=== PATIENT | female | born 1945 | race Caucasian/White ===

== ENCOUNTER → 2018-07-23 19:46 | Outpatient (CLI) | payer MEDICARE, SELFPAY ==
[2018-07-23 19:49] LABS: Mucous, Urine 0 SEEN /hpf (<or=2+)
[2018-07-23 20:16] LABS: Color, Urine Yellow (Yellow); Glucose, Dipstick Normal (Normal); Ketone-Dipstick Negative (Negative); Leukocyte Esterase-Dipstick 500 /ul (Negative); Nitrite-Dipstick Positive (Negative); Occult Blood-Urine 250 /ul (Negative); Protein-Dipstick 100 mg/dl (Negative); Specific Gravity, Urine 1.015 (1.002-1.030); Urine Bilirubin Dipstick Negative (Negative); Urine Clarity Cloudy (Clear); Urine Urobilinogen Normal (Normal)
[2018-07-23 20:34] LABS: Red Blood Cells-Urine 5-10 SEEN /hpf (0-5); White Blood Cells >100 SEEN /hpf (0-5)
[2018-07-23 20:35] LABS: Bacteria 1+ /hpf (None Seen); Squamous Epithelial Cells - UA 0-5 SEEN /hpf (5-10)
== END ==
PROVIDERS: Family Provider Student in an Organized Health Care Education/Training Program; PCP Student in an Organized Health Care Education/Training Program; Referring Provider Physician Assistant Surgical; Visit Provider Physician Assistant Surgical
DX: N30.01 Acute cystitis with hematuria (principal); R35.0 Frequency of micturition
CPT/HCPCS: 81001; 87077; 87086; 87088; 87186

== ENCOUNTER 2021-01-24 08:08 | Emergency (ER) | payer MEDICARE, SELFPAY ==
[2021-01-24 08:09] VITALS: BP 154/101; PULSE 93; RESP 16; TEMP 36.4; O2SAT 97; BMI 21.4
--- NOTE | 2021-01-24 08:33 | RAD_ITS ---
STUDY: X-RAY - RIGHT HUMERUS REASON FOR EXAM: Female, 75 years old. Pain, decreased range of motion TECHNIQUE: 2 view(s) of the humerus. COMPARISON: None. FINDINGS: Normal visualized humerus. There is no demonstrated fracture or osseous destructive process. There is no demonstrated soft tissue abnormality. RAD/Humerus min 2 Views IMPRESSION: Normal x-ray examination of the humerus. Electronically Signed: Krishna Queen MD at 9:02 EDT , Service support ,
--- NOTE | 2021-01-24 08:33 | RAD_ITS ---
STUDY: X-RAY - RIGHT HAND REASON FOR EXAM: Female, 75 years old. Injury/Pain TECHNIQUE: 3 view(s) of the hand. COMPARISON: None. FINDINGS: The bones are diffusely demineralized. Age consistent degenerative changes at all visualized joint spaces. No demonstrated fracture. There is chondrocalcinosis noted in the TFCC. No foreign body or suspicious soft tissue swelling. RAD/Hand Min 3 Views IMPRESSION: Diffuse osteopenia with polyarticular arthrosis Electronically Signed: Krishna Queen MD at 9:23 EDT , Service support ,
--- NOTE | 2021-01-24 08:33 | RAD_ITS ---
STUDY: X-RAY - RIGHT SHOULDER REASON FOR EXAM: Female, 75 years old. Pain, decreased range of motion TECHNIQUE: 4 view(s) of the shoulder. COMPARISON: None. FINDINGS: Normal glenohumeral articulation. There is degenerative arthrosis of the acromioclavicular joint without inferior osseous spur formation. Normal acromion. Small spurs on the undersurface of the acromion and clavicles could cause impingement in the right clinical setting. Normal humeral head and visualized proximal humerus. The soft tissue structures are unremarkable. Normal visualized pulmonary apex. RAD/Shoulder min 2 Views IMPRESSION: AC joint arthrosis with small inferior spurs which could cause impingement in the right clinical setting Electronically Signed: Krishna Queen MD at 9:03 EDT , Service support ,
--- NOTE | 2021-01-24 08:49 | RAD_ITS ---
STUDY: X-RAY - RIGHT ELBOW REASON FOR EXAM: Female, 75 years old. Injury/Pain TECHNIQUE: 3 view(s) of the elbow. COMPARISON: None. FINDINGS: Normal visualized humerus, radius and ulna. Normal radiocapitellar and ulnotrochlear articulations. The soft tissue structures are unremarkable. RAD/Elbow min 3 Views IMPRESSION: Normal x-ray examination of the elbow. Electronically Signed: Krishna Queen MD at 9:23 EDT , Service support ,
--- NOTE | 2021-01-24 08:50 | ED.VIS.FALL ---
HPI HPI - Fall History of Present Illness Chief Complaint: Fall Narrative Narrative: Patient reports that at noon yesterday she tripped over a curb and fell onto an outstretched right hand. She is right-hand dominant. She denies any blow to the head or loss of consciousness. No neck, back, hip pain. No left shoulder pain. Patient reports that she has right shoulder pain is 3 out of 10 severity and is increased with movement. She has right elbow pain and hand pain that is 7 out of 10 in severity with movement 2 out of 10 at rest. She denies any paresthesias distally. PFSH PFS Medical History Arthritis Back pain History of pneumonia Incontinence Skin cancer Stomach ulcer Thyroid disease Home Medications levothyroxine 13 mcg capsule 13 mcg PO DAILY 07/23/18 [History Last Taken Unknown] pantoprazole 20 mg tablet,delayed release 20 mg PO DAILY 07/23/18 [History Last Taken Unknown] sertraline 25 mg tablet 25 mg PO DAILY 07/23/18 [History Last Taken Unknown] calcium carbonate-vitamin D3 [Jj-600 With Vitamin D] 1 tab PO DAILY 01/24/21 [History Last Taken Unknown] cholecalciferol (vitamin D3) [Vitamin D3] 125 mcg PO DAILY 01/24/21 [History Last Taken Unknown] hydrocodone-acetaminophen 1 tab PO Q6H PRN 3 Days #10 tab 01/24/21 [Rx Last Taken Unknown] magnesium glycinate 100 mg PO DAILY 01/24/21 [History Last Taken Unknown] multivitamin 1 tab PO DAILY 01/24/21 [History Last Taken Unknown] sennosides [senna] 8.6 mg PO DAILY #7 cap 01/24/21 [Rx Last Taken Unknown] vitamin B complex [B Complex] 1 cap PO DAILY 01/24/21 [History Last Taken Unknown] Allergy/AdvReac Type Severity Reaction Status Date / Time Penicillins Allergy Swelling Verified 01/24/21 08:08 Surgical History History of colectomy Perforated ulcer Social History Smoking Status: Never smoker ROS ROS ED Constitutional Constitutional ED: Denies chills, fever(s) or sweats Eyes Eyes: Denies change in vision ENT ENT ED: Denies sore throat Cardiovascular Cardiovascular: Denies chest pain Respiratory/Chest Respiratory/Chest: Denies cough, dyspnea or dyspnea on exertion Gastrointestinal Gastrointestinal: Denies abdominal pain, diarrhea, melena, nausea or vomiting Genitourinary Genitourinary ED: Denies dysuria or urinary frequency Musculoskeletal Musculoskeletal: Denies myalgias Integumentary Denies rash Neurologic Neurologic: Denies headache(s), paresthesias or weakness EXAM Physical Exam Const Vital Signs: 01/24/21 08:09 Temperature 97.5 F L Temperature Source Temporal Pulse Rate 93 Respiratory Rate 16 Blood Pressure 154/101 H Blood Pressure Mean 118 Pulse Ox 97 Oxygen Delivery Method Room Air Positive well nourished and well developed General Appearance ED: well developed HEENT normocephalic and atraumatic Eyes PERRL Neck full ROM, no lymphadenopathy, supple and no JVD Neck Narrative: No vertebral tenderness. Full ROM without difficulty. Cleared by NEXUS criteria. General: Negative for tenderness Chest Wall Chest: Negative for tenderness Resp normal respiratory effort and clear to auscultation bilaterally Effort and Inspection: Negative for respiratory distress Cardio regular rate, regular rhythm and no murmurs Rate: regular rate Rhythm: regular rhythm GI normal to inspection, nondistended, normoactive bowel sounds, soft to palpation and non-tender GI Narrative: No pain in RUQ or LUQ specifically. No peritoneal signs. Back/Spine Back/Spine Narrative: No vertebral tenderness. Full ROM without difficulty. Extremity Extremity Narrative: Mild tenderness palpation over the right shoulder. Good range of motion with minimal difficulty. Moderate tenderness palpation over the right radial head. She does have pain with supination. Minimal pain with flexion extension of her elbow. No tenderness palpation over the distal radius. She has severe tenderness to palpation over the dorsum of her hand medially and there is soft tissue swelling and contusion present. She is neurovascular intact distal to this. 2+ radial pulse. General Extremety ED: Negative for edema or tenderness General Extremity: Negative for edema Neuro oriented x3, CN's II-XII intact bilaterally and no sensory deficits noted Sensorium / Orientation: awake and alert Motor Exam: strength 5/5 throughout Psych mental status grossly normal Skin no rashes or lesions noted MDM MDM Radiography Diagnostic Testing: Radiology Impression Hand X-Ray 01/24/21 08:33 IMPRESSION: Diffuse osteopenia with polyarticular arthrosis Electronically Signed: Krishna Queen MD at 9:23 EDT , Service support , Humerus X-Ray 01/24/21 08:33 IMPRESSION: Normal x-ray examination of the humerus. Electronically Signed: Krishna Queen MD at 9:02 EDT , Service support , Shoulder X-Ray 01/24/21 08:33 IMPRESSION: AC joint arthrosis with small inferior spurs which could cause impingement in the right clinical setting Electronically Signed: Krishna Queen MD at 9:03 EDT , Service support , Elbow X-Ray 01/24/21 08:49 IMPRESSION: Normal x-ray examination of the elbow. Electronically Signed: Krishna Queen MD at 9:23 EDT , Service support , X-rays were reviewed by me. Clinically the patient has a fracture at the base of her fifth metacarpal and I feel that this is present on the x-ray. I did call and discussed with this with the radiologist and he agrees. Treatment and Re-Evaluation Comments:: Patient refused pain medications. She was placed in an orthoglass ulnar gutter splint. Treatment plan: Patient will be discharged with Scott and wendy. Instructed follow-up Dr. Kvng Barber in 1 week for another exam. Return to the emergency department for any worsening symptoms. Disposition: To home in improved and stable condition. Procedures Upper Extremity Splints Upper Extremity Splint: Orthoglass and Ulnar gutter Splint Fabrication: Fabricated Location: Right Discharge Plan Triage Chief Complaint: Fall ED Provider: Laci Ferguson Dx/Rx/DC Orders Clinical Impression: Fracture of fifth metacarpal bone of right hand Instructions: ED Closed Hand Fracture (Adult) Prescriptions: New hydrocodone-acetaminophen 5-325 mg tablet 1 tab PO Q6H PRN (Reason: pain) 3 Days Qty: 10 RF: 0 senna 8.6 mg capsule 8.6 mg PO DAILY Qty: 7 RF: 0 No Action levothyroxine 13 mcg capsule 13 mcg capsule 13 mcg PO DAILY RF: 0 pantoprazole [Protonix] 20 mg tablet,delayed release (DR/EC) 20 mg PO DAILY RF: 0 sertraline [Zoloft] 25 mg tablet 25 mg PO DAILY RF: 0 multivitamin Tablet 1 tab PO DAILY RF: 0 calcium carbonate-vitamin D3 [Jj-600 With Vitamin D] 600 mg(1,500mg) -200 unit Tablet 1 tab PO DAILY RF: 0 vitamin B complex [B Complex] Capsule 1 cap PO DAILY RF: 0 magnesium glycinate 100 mg Tablet 100 mg PO DAILY RF: 0 cholecalciferol (vitamin D3) [Vitamin D3] 125 mcg (5,000 unit) Tablet 125 mcg PO DAILY RF: 0 Primary Care Provider: Rafita Reeves Referrals: Rafita Reeves DO [Primary Care Provider] - Knvg Barber MD [STAFF PHYSICIAN] - 1 Week
== END 2021-01-24 09:54 | disposition home or self-care (01) ==
PROVIDERS: Emergency Provider Emergency Medicine; PCP Student in an Organized Health Care Education/Training Program
DX: S62.316A Displaced fracture of base of fifth metacarpal bone, right hand, initial encounter for closed fracture (principal); M25.511 Pain in right shoulder; M25.521 Pain in right elbow; W10.1XXA Fall (on)(from) sidewalk curb, initial encounter; Y93.9 Activity, unspecified; Y92.9 Unspecified place or not applicable; E07.9 Disorder of thyroid, unspecified; M19.90 Unspecified osteoarthritis, unspecified site; Z87.01 Personal history of pneumonia (recurrent); Z85.828 Personal history of other malignant neoplasm of skin; Z87.19 Personal history of other diseases of the digestive system; Z79.899 Other long term (current) drug therapy
CPT/HCPCS: 29125; 73030; 73060; 73080; 73130; 99282

== ENCOUNTER 2021-03-11 15:00 | Outpatient (RCR) | payer MEDICARE, SELFPAY ==
[2021-02-04 08:27] VITALS: BMI 21.4
[2021-02-11 14:18] VITALS: BMI 21.4
--- NOTE | 2021-02-12 07:37 | HP.OTEVAL ---
Patient's Visit Information DADA ROMAN is a 75 year old F, referred to Occupational Therapy by Dr. Leonora Farley DO, with a diagnosis of right hand 5th Metacarpal fx. Date of Evaluation: 02/11/21 Occupational Therapist: Keyla Ureña, JAYNA/Amandeep, CHT - Subjective This 75 year old female was seen for OT eval with dx of right hand 5th Metacarpal fx. pt states date of injury was January 23, 2021. pt was placed in a cast until today. pt is in need of custom orthosis to allow for fx to continue to healing. - Pain right hand 3 Pain Intensity Range: 0, 3 - ROM ROM Comments: pt demo full ROM of right hand. nodule at base of right 5th - Strength Strength Comments: not tested - Sensation Sensation Comments: denies - Quick DASH-Disab of Arm,Shoulder& Hand Quick DASH Score: 43.1800 - Goals Goal:: pt will demo ind. doffing/donning custom orthosis by end of 1st session. Pt will demonstrate understanding of orthosis use and precautions by end of 1st session and demonstrate knowledge of returning to clinic if orthosis needs adj. to increase comfort by end of 1st session - Rehabilitation General Assessment: Pt is 20 days from DOI and with cast removed in need of custom orthosis for protection and support while fx is healing. Today therapist andrea. custom ulnar gutter orthosis with wrist included, ed. in use and skin care precautions. pt to return to clinic as needed for othosis adj. Rehabilitation Potential: Excellent - Anticipated Interventions Orthoses, Home Program - Visit Plan TEXT: Thank you for the opportunity to evaluate your patient. For Medicare and Medicare HMO plans, please review the plan of care and approve it. It will need to be FAXED BACK to us at [phone] for Medicare purposes. Please let me know if there are questions or concerns regarding this plan of care. Physician Signature: Date:
--- NOTE | 2021-05-17 12:37 | HP.OT.NRP ---
DADA ROMAN was seen in my office for initial evaluation on 02/11/21. The following Plan of Care was established for this patient: Anticipated Interventions: Orthoses, Home Program This patient was last seen in our office 03/11/21. Pertinent comments regarding their Occupational therapy will appear below: Pt was seen for 2 OT visit- pt has not scheduled further apt and due to time lapse in services pt d/c. At this point I will be discontinuing this patient from occupational therapy. I would be happy to see this patient again in the future if found appropriate by the physician. Thank you! Keyla Ureña, OTR/L, CHT
== END 2021-03-11 19:00 | disposition home or self-care (01) ==
LOC: OT 15:00
PROVIDERS: PCP Student in an Organized Health Care Education/Training Program; Referring Provider Orthopaedic Surgery; Visit Provider Orthopaedic Surgery
DX: S62.316D Displaced fracture of base of fifth metacarpal bone, right hand, subsequent encounter for fracture with routine healing (principal); X58.XXXD Exposure to other specified factors, subsequent encounter
CPT/HCPCS: 97110; 97166

== ENCOUNTER 2021-04-08 16:30 | Observation (INO) | payer MEDICARE, SELFPAY ==
[2021-03-05 12:07] VITALS: BMI 21.4
[2021-04-08 16:32] VITALS: BP 107/60; PULSE 110; RESP 16; TEMP 37; O2SAT 96; BMI 20.5
[2021-04-08 16:51] LABS: Absolute Lymphocyte Count 1.27 X10^3/uL (0.83-4.51); Absolute Neutrophil Count 5.5 X10^3/uL (2.0-7.7); Basophil# 0.07 X10^3/uL; Basophil% 0.9 % (0-1); Eosinophil# 0.01 X10^3/uL; Eosinophils% 0.1 % (0-5); Hematocrit 47.4 % (37-47); Hemoglobin 16.1 g/dL (12.0-15.0); Lymphocyte # 1.27 X10^3/ul (0.83-4.51); Lymphocyte % 15.9 % (19-41); Mean Corpuscular Volume 88.3 fL (81-99); Mean Platelet Vol. 9.8 fl (6.2-12.0); Monocyte# 1.09 X10^3/uL; Monocyte% 13.6 % (0-10); NRBC Flagged by Analyzer 0 % (0-5); Neutrophil # 5.52 X10^3/uL (2.7-7.7); Neutrophil % 69.1 % (47-70); Platelet Count 459 K/mm3 (150-450); RBC Distribution Width CV 12.8 % (11.6-14.6); RBC Distribution Width SD 41.3 fl (35.1-43.9); Red Blood Count 5.37 M/mm3 (4.2-5.4)
[2021-04-08 17:03] LABS: Anion Gap 14 (5-15); BUN 27 mg/dL (7-18); BUN/Creat Ratio 11.2 RATIO (10-20); Calcium,Total 9.5 mg/dL (8.5-10.1); Chloride 91 mmol/L (98-107); Creatinine, Serum 2.42 mg/dL (0.55-1.02); EST Glomerular Filtration Rate 21 mL/min (>60); Est Glom Filt Rate - Afr Amer 25 mL/min (>60); Estimated Creatinine Clearance 16.87 ml/min; Glucose 136 mg/dL (74-106); Potassium 3.9 mmol/L (3.5-5.1); Sodium Level 126 mmol/L (136-145)
[2021-04-08 17:57] VITALS: BP 129/69; PULSE 76; RESP 16; TEMP 36.7; O2SAT 96
--- NOTE | 2021-04-08 18:44 | ED.VIS.GI ---
HPI HPI - GI History of Present Illness Chief Complaint: Nausea/Vomiting/Diarrhea Informant: patient and family Abdominal Pain/Flank Pain Onset: Days Timing: Continuous Quality: Cramping Location: Diffuse Current Severity: Mild Maximum Severity: Moderate Nausea/Vomiting/Emesis GI Symptom: Positive for Nausea and Vomiting Onset: Days Severity: Moderate Diarrhea/Melena/Hematochezia GI Symptom: Positive for Diarrhea; Negative for Melena and Hematochezia Onset: Days Stool Quality: Positive for Loose Severity: Mild Associated Symptoms Associated Symptoms: Negative for Dysuria, Frequency, Hematuria and Urgency Narrative Narrative: 75-year-old female states she has had nausea, vomiting diarrhea since Monday. Abdominal cramping. Says she was admitted to [facility] on Monday and discharged yesterday evening. She states her symptoms continue. She has had a prior colectomy for ulcerative colitis. Also appendectomy, cholecystectomy and hysterectomy. She denies any dysuria. She denies any fever. Prior similar symptoms: No Recent Illness/Hospitalization: Yes [facility] [place] Medical History Arthritis Back pain History of pneumonia Incontinence Skin cancer Stomach ulcer Thyroid disease Home Medications levothyroxine 13 mcg capsule 13 mcg PO DAILY 07/23/18 [History Last Taken Unknown] pantoprazole 20 mg tablet,delayed release 20 mg PO DAILY 07/23/18 [History Last Taken Unknown] sertraline 25 mg tablet 25 mg PO DAILY 07/23/18 [History Last Taken Unknown] calcium carbonate-vitamin D3 [Jj-600 With Vitamin D] 2 tab PO DAILY 01/24/21 [History Last Taken Unknown] cholecalciferol (vitamin D3) [Vitamin D3] 125 mcg PO DAILY 01/24/21 [History Last Taken Unknown] magnesium glycinate 100 mg PO DAILY 01/24/21 [History Last Taken Unknown] multivitamin 1 tab PO DAILY 01/24/21 [History Last Taken Unknown] sennosides [senna] 8.6 mg PO DAILY #7 cap 01/24/21 [Rx Last Taken Unknown] vitamin B complex [B Complex] 1 cap PO DAILY 01/24/21 [History Last Taken Unknown] Allergy/AdvReac Type Severity Reaction Status Date / Time Penicillins Allergy Swelling Verified 04/08/21 16:31 Surgical History History of colectomy Perforated ulcer Social History Smoking Status: Never smoker ROS ROS ED ROS Narrative Recent nausea, vomiting, diarrhea and abdominal pain. Review of Systems ROS Unobtainable: Denies due to encephalopathy Constitutional Constitutional ED: Denies chills or fever(s) ENT ENT ED: Denies ear pain or sore throat Cardiovascular Cardiovascular: Denies chest pain Respiratory/Chest Respiratory/Chest: Denies cough or dyspnea Gastrointestinal Gastrointestinal: Reports abdominal pain, diarrhea, nausea and vomiting; Denies constipation or melena Genitourinary Genitourinary ED: Denies dysuria or hematuria Musculoskeletal Musculoskeletal: Denies arthralgias or myalgias Integumentary Denies rash Neurologic Neurologic: Denies headache(s) Psychiatric Psychiatric: Denies depression Endocrine Endocrinology: Denies polyuria Hematologic/Lymphatic Hematologic/Lymphatic: Denies easy bruising Allergic/Immunologic Allergic/Immunologic ED: Denies urticaria EXAM Physical Exam Narrative Exam Narrative: 75-year-old female bent over sitting on the end of the bed. Retching. Vital signs are stable. She is afebrile. She does not look septic or toxic. She does have dry mucous membranes. HEENT exam dry mouth. Otherwise unremarkable. Neck nontender no lymphadenopathy. Lungs clear to auscultation bilaterally. Heart regular rhythm no murmur. Abdomen is soft nondistended normal bowel sounds no peritoneal signs. Minimally tender. No signs of obstruction. No hernia or mass. Patient moving all 4 extremities. Nontender no edema. Skin unremarkable. Neurologically she is awake alert with no focal motor deficits. Const Vital Signs: 04/08/21 16:32 04/08/21 17:57 04/08/21 19:00 Temperature 98.6 F 98.1 F 98.5 F Temperature Source Temporal Oral Oral Pulse Rate 110 H 76 76 Respiratory Rate 16 16 16 Blood Pressure 107/60 129/69 H 122/66 H Blood Pressure Mean 75 89 84 Pulse Ox 96 96 96 Oxygen Delivery Method Room Air Room Air Room Air Positive well nourished and well developed; Negative for unkempt General Appearance ED: well developed; Negative for unkempt HEENT Reports dry mucous membranes normocephalic and atraumatic; Negative for trauma or tenderness Mouth ED: Yes dry mucous membranes Mouth: dry mucous membranes Eyes PERRL and EOMs intact bilaterally Neck no lymphadenopathy, supple and no JVD General: Negative for tenderness Resp normal respiratory effort and clear to auscultation bilaterally Cardio regular rate, regular rhythm, S1 normal heart sound, S2 normal heart sound and no murmurs Rate: tachycardic GI non-distended and no masses Auscultation: normoactive bowel sounds Palpation: soft and tender Back/Spine no CVA tenderness Extremity full ROM General Extremety ED: Negative for edema or tenderness General Extremity: Negative for edema Neuro CN's II-XII intact bilaterally and moves all extremities Sensorium / Orientation: alert, oriented to person, oriented to place and oriented to time Motor Exam: strength 5/5 throughout Psych mental status grossly normal Appearance: Negative for unkempt Skin Lesions: no lesions Rashes: no rashes MDM MDM MDM Narrative Medical decision making narrative: 75-year-old female with nausea vomiting diarrhea now for 6 days. She was recently hospitalized at [facility]. Discharged yesterday. She is having similar symptoms. Clinically she looks dehydrated. She be treated with IV fluids nausea medication pain medication and labs to be obtained. Repeat exam at 845 patient looks a lot better. Pain is currently much improved. She feels much better after the IV fluids. And the IV Zofran. She denies and female friend at the bedside all discussed her tests and she will be admitted have already spoken to the hospitalist. I am not doing imaging at this time because she looks so much better her abdomen is benign and her current kidney function. Lab Data Attestation: I reviewed the patient's lab results. Lab results narrative: CBC White count 8. Hemoglobin 16 most likely elevated due to dehydration. Sodium is low at 126. Chloride 91. Gap 14. She had acute kidney injury with a creatinine of 2.42 I will look back to see if we have any old ones to compare that to. Liver enzymes and lipase are normal as is the UA. Labs: Laboratory Results - last 24 hr 04/08/21 04/08/21 04/08/21 16:40 16:40 18:50 WBC 8.0 RBC 5.37 Hgb 16.1 H Hct 47.4 H MCV 88.3 MCH 30.0 MCHC 34.0 RDW Std Deviation 41.3 RDW Coeff of Humphrey 12.8 Plt Count 459 H MPV 9.8 Immature Gran % (Auto) 0.400 Neut % (Auto) 69.1 Lymph % (Auto) 15.9 L Luna % (Auto) 13.6 H Eos % (Auto) 0.1 Baso % (Auto) 0.9 Absolute Neuts (auto) 5.5 Absolute Lymphs (auto) 1.27 Nucleated RBC % 0 Sodium 126 L Potassium 3.9 Chloride 91 L Carbon Dioxide 21.0 Anion Gap 14 BUN 27 H Creatinine 2.42 H Estim Creat Clear Calc 16.87 Est GFR (MDRD) Af Amer 25 L Est GFR (MDRD) Non-Af 21 L BUN/Creatinine Ratio 11.2 Glucose 136 H Calcium 9.5 Total Bilirubin 0.80 Direct Bilirubin 0.20 AST 19 ALT 23 Alkaline Phosphatase 112 Total Protein 8.9 H Albumin 4.1 Globulin 4.8 H Lipase 230 Urine Color Urine Clarity Urine pH Ur Specific Apex Urine Protein Urine Glucose (UA) Urine Ketones Urine Occult Blood Urine Nitrite Urine Bilirubin Urine Urobilinogen Ur Leukocyte Esterase Urine RBC Urine WBC Ur Squamous Epith Cells Amorphous Sediment Urine Bacteria Hyaline Casts Urine Mucus 04/08/21 19:40 WBC RBC Hgb Hct MCV MCH MCHC RDW Std Deviation RDW Coeff of Humphrey Plt Count MPV Immature Gran % (Auto) Neut % (Auto) Lymph % (Auto) Luna % (Auto) Eos % (Auto) Baso % (Auto) Absolute Neuts (auto) Absolute Lymphs (auto) Nucleated RBC % Sodium Potassium Chloride Carbon Dioxide Anion Gap BUN Creatinine Estim Creat Clear Calc Est GFR (MDRD) Af Amer Est GFR (MDRD) Non-Af BUN/Creatinine Ratio Glucose Calcium Total Bilirubin Direct Bilirubin AST ALT Alkaline Phosphatase Total Protein Albumin Globulin Lipase Urine Color Yellow Urine Clarity Sl. Cloudy Urine pH 5.0 Ur Specific Apex 1.025 Urine Protein 30 H Urine Glucose (UA) Normal Urine Ketones 5 H Urine Occult Blood 10 H Urine Nitrite Negative Urine Bilirubin 3 H Urine Urobilinogen 1 H Ur Leukocyte Esterase 25 H Urine RBC 0-5 SEEN Urine WBC 0-5 SEEN Ur Squamous Epith Cells 0-5 SEEN Amorphous Sediment 1+ URATE Urine Bacteria 0 SEEN Hyaline Casts 5-10 SEEN Urine Mucus 0 SEEN Discharge Plan Triage Chief Complaint: Nausea/Vomiting/Diarrhea ED Provider: Jono Timmons Dx/Rx/DC Orders Clinical Impression: Gastroenteritis, Acute dehydration, Acute kidney injury, Acute hyponatremia Prescriptions: No Action levothyroxine 13 mcg capsule 13 mcg capsule 13 mcg PO DAILY RF: 0 pantoprazole [Protonix] 20 mg tablet,delayed release (DR/EC) 20 mg PO DAILY RF: 0 sertraline [Zoloft] 25 mg tablet 25 mg PO DAILY RF: 0 multivitamin Tablet 1 tab PO DAILY RF: 0 calcium carbonate-vitamin D3 [Jj-600 With Vitamin D] 600 mg(1,500mg) -200 unit Tablet 2 tab PO DAILY RF: 0 vitamin B complex [B Complex] Capsule 1 cap PO DAILY RF: 0 magnesium glycinate 100 mg Tablet 100 mg PO DAILY RF: 0 cholecalciferol (vitamin D3) [Vitamin D3] 125 mcg (5,000 unit) Tablet 125 mcg PO DAILY RF: 0 senna 8.6 mg capsule 8.6 mg PO DAILY Qty: 7 RF: 0 Primary Care Provider: Rafita Reeves Referrals: Rafita Reeves DO [Primary Care Provider] - Disposition Disposition: Acute Care Hospital [facility]
[2021-04-08 19:00] VITALS: BP 122/66; PULSE 76; RESP 16; TEMP 36.9; O2SAT 96
[2021-04-08] MEDS: 0.9% Normal Saline 1,000 ML 1000 ML IV (19:05)
[2021-04-08] MEDS: Ondansetron 4 MG/2 ML Vial IV (19:05)
[2021-04-08] MEDS: Morphine 4 MG/ML Syringe IV (19:05)
[2021-04-08 19:28] LABS: AST(SGOT) 19 U/L (15-37); Alanine Aminotransfer ALT/SGPT 23 U/L (13-56); Albumin, Serum 4.1 g/dL (3.2-5.0); Alkaline Phosphatase 112 U/L (45-117); Globulin 4.8 g/dL (2.2-4.2); Lipase 230 U/L (73-393); Protein, Total 8.9 g/dL (6.4-8.2)
[2021-04-08 19:44] LABS: Bacteria 0 SEEN /hpf (None Seen); Mucous, Urine 0 SEEN /hpf (<or=2+)
[2021-04-08 19:55] LABS: Color, Urine Yellow (Yellow); Glucose, Dipstick Normal (Normal); Ketone-Dipstick 5 mg/dl (Negative); Leukocyte Esterase-Dipstick 25 /ul (Negative); Nitrite-Dipstick Negative (Negative); Occult Blood-Urine 10 /ul (Negative); Protein-Dipstick 30 mg/dl (Negative); Specific Gravity, Urine 1.025 (1.002-1.030); Urine Clarity Sl. Cloudy (Clear); Urine Urobilinogen 1 mg/dl (Normal)
[2021-04-08 19:58] LABS: Urine Bilirubin Dipstick 3 mg/dL (Negative)
[2021-04-08 20:11] LABS: Amorphous Sediment 1+ URATE; Hyaline Cast 5-10 SEEN /lpf (0-5); Red Blood Cells-Urine 0-5 SEEN /hpf (0-5); Squamous Epithelial Cells - UA 0-5 SEEN /hpf (5-10); White Blood Cells 0-5 SEEN /hpf (0-5)
--- NOTE | 2021-04-08 20:41 | HP.PCM.HOS_ITS ---
HPI - General General Date of Admission: 04/08/21 HPI Narrative DADA ROMAN, is a 75 F with a PMH as outlined who was admitted via the ED on 04/08/2021 with a complaint of nausea, vomiting and diarrhea for 5 days prior to admission. She had associated abdominal cramping and was recenty admitted at an outside hospital-[facility], where she was hydrated with IVF and discharged 2 days prior to presenting at [facility] due to persistence of her symptoms. She denied any fever, chills, chest pain, palpitations, dizziness or shortness of breath. Review of systems is otherwise negative. Diarrhea had resolved at time of review. Vitals showed BP of 122/66, IL of 76 as well as RR of 16; temp was 98.5F. Chemistry showed Hb of 16.1, wbc of 8 and platelets of 459. Chemisty showed sodiu of 126, K of 3.9, Cr of 2.42 and lipase was 230. UA was negative for UTI. She is being admitted to be managed for intractable nausea and vomiting. [facility] Medical History Arthritis Back pain History of pneumonia Incontinence Skin cancer Stomach ulcer Thyroid disease Home Medications pantoprazole 20 mg tablet,delayed release 20 mg PO DAILY 07/23/18 [History Last Taken Unknown] sertraline 25 mg tablet 25 mg PO DAILY 07/23/18 [History Last Taken Unknown] calcium carbonate-vitamin D3 [Jj-600 With Vitamin D] 2 tab PO DAILY 01/24/21 [History Last Taken Unknown] cholecalciferol (vitamin D3) [Vitamin D3] 125 mcg PO DAILY 01/24/21 [History Last Taken Unknown] magnesium glycinate 100 mg PO DAILY 01/24/21 [History Last Taken Unknown] multivitamin 1 tab PO DAILY 01/24/21 [History Last Taken Unknown] sennosides [senna] 8.6 mg PO DAILY #7 cap 01/24/21 [Rx Last Taken Unknown] vitamin B complex [B Complex] 1 cap PO DAILY 01/24/21 [History Last Taken Un known] levothyroxine 100 mcg PO MOTUWETHFR 04/08/21 [History Last Taken Unknown] levothyroxine 200 mcg PO SUSA 04/08/21 [History Last Taken Unknown] Allergy/AdvReac Type Severity Reaction Status Date / Time Penicillins Allergy Swelling Verified 04/08/21 16:31 Surgical History History of colectomy Perforated ulcer Social History Smoking Status: Never smoker ROS Review of Systems ROS Unobtainable: Denies due to encephalopathy Constitutional Constitutional: Reports anorexia, fatigue, malaise and weakness; Denies change in weight, chills or fever(s) Eyes Eyes: Denies double vision ENT HEENT: Denies dysphagia, hearing loss, nasal congestion, nasal discharge or sore throat Cardiovascular Cardiovascular: Denies chest pain, dyspnea on exertion, lightheadedness, orthopnea, palpitations, paroxysmal nocturnal dyspnea or rapid heart rate Respiratory/Chest Respiratory/Chest: Denies cough, dyspnea, productive cough, shortness of breath at rest or shortness of breath with exertion Gastrointestinal Gastrointestinal: Reports abdominal pain, nausea and vomiting; Denies coffee ground emesis, constipation, diarrhea, dyspepsia, hematemesis, hematochezia, loose stools or melena Genitourinary Genitourinary: Denies burning urination, dysuria or urinary frequency Musculoskeletal Musculoskeletal: Denies arthralgias or joint swelling Neurologic Neurologic: Reports abnormal gait; Denies dizziness, focal weakness or headac he(s) Psychiatric Psychiatric: Denies anxiety Hematologic/Lymphatic Hematologic/Lymphatic: Denies anemia Allergic/Immunologic Allergic/Immunologic: Denies asthma Vital Signs Vital Signs Vital Signs: 04/08/21 16:32 04/08/21 17:57 04/08/21 19:00 Temperature 98.6 F 98.1 F 98.5 F Temperature Source Temporal Oral Oral Pulse Rate 110 H 76 76 Respiratory Rate 16 16 16 Blood Pressure 107/60 129/69 H 122/66 H Blood Pressure Mean 75 89 84 Pulse Ox 96 96 96 Oxygen Delivery Method Room Air Room Air Room Air Weight Weight: 115 lb 15.41 oz Body Mass Index (BMI) 20.5 Physical Exam Const alert, oriented x3 and no apparent distress General Appearance: cooperative HEENT normocephalic, head/scalp atraumatic and hearing grossly normal bilaterally HEENT Narrative: dry mucosal membranes Eyes PERRL, EOMs intact bilaterally and conjunctivae normal Neck no lymphadenopathy Resp normal respiratory effort, no retractions, no use of accessory muscles and clear to auscultation bilaterally Cardio regular rate, regular rhythm, S1 normal heart sound, S2 normal heart sound and no murmurs GI normal to inspection, nondistended, normoactive bowel sounds, soft to palpation, non-tender and non-distended Extremity normal to inspection, full ROM and no clubbing, cyanosis or edema Peripheral Pulses: Yes pulses 2+ throughout Skin no rashes or lesions noted Neuro oriented x3 Sensorium / Orientation: awake and alert Psych affect normal Results Lab / Micro Data Result Diagrams: 04/08/21 16:40 04/08/21 16:40 Labs: Laboratory Results - last 24 hr 04/08/21 16:40: WBC 8.0, RBC 5.37, Hgb 16.1 H, Hct 47.4 H, MCV 88.3, MCH 30.0, MCHC 34.0, RDW Std Deviation 41.3, RDW Coeff of Humphrey 12.8, Plt Count 459 H, MPV 9.8, Immature Gran % (Auto) 0.400, Neut % (Auto) 69.1, Lymph % (Auto) 15.9 L, [place] % (Auto) 13.6 H, Eos % (Auto) 0.1, Baso % (Auto) 0.9, Absolute Neuts (auto) 5.5, Absolute Lymphs (auto) 1.27, Nucleated RBC % 0 04/08/21 16:40: Sodium 126 L, Potassium 3.9, Chloride 91 L, Carbon Dioxide 21.0, Anion Gap 14, BUN 27 H, Creatinine 2.42 H, Estim Creat Clear Calc 16.87, Est GFR (MDRD) Af Amer 25 L, Est GFR (MDRD) Non-Af 21 L, BUN/Creatinine Ratio 11.2, Glucose 136 H, Calcium 9.5 04/08/21 18:50: Total Bilirubin 0.80, Direct Bilirubin 0.20, AST 19, ALT 23, Alkaline Phosphatase 112, Total Protein 8.9 H, Albumin 4.1, Globulin 4.8 H, Lipase 230 04/08/21 19:40: Urine Color Yellow, Urine Clarity Sl. Cloudy, Urine pH 5.0, Ur Specific [place] 1.025, Urine Protein 30 H, Urine Glucose (UA) Normal, Urine Ketones 5 H, Urine Occult Blood 10 H, Urine Nitrite Negative, Urine Bilirubin 3 H, Urine Urobilinogen 1 H, Ur Leukocyte Esterase 25 H, Urine RBC 0-5 SEEN, Urine WBC 0-5 SEEN, Ur Squamous Epith Cells 0-5 SEEN, Amorphous Sediment 1+ URATE, Urine Bacteria 0 SEEN, Hyaline Casts 5-10 SEEN, Urine Mucus 0 SEEN Assessment & Plan Assessment/Plan (1) Acute kidney injury: (2) Acute dehydration: (3) Acute hyponatremia: (4) Gastroenteritis: PLAN: #Intractable nausea and vomiting * etiology is unclear, appears to be possibly a viral enteritis * admit to med surg * hydrate gently with iVF * IV zofran prn * #Hyponatremia * likely a hypo osmolar hypotonic hyponatremia due to nausea and vomiting * check serum and urine osmolality * hydrate with IVF and trend sodium * #JANY * CR is 2.42, with a baseline of 0.8 from 2015 * likely due to nausea and vomiting * hydrate with IVF and trend CR. If CR doesnt trend down with hydration, will get renal USG and further urine electrolyte studies * #HYpothyroidism: on synthroid #Depression: on sertraline DVT prophylaxis: lovenox Code status: full code * Patient counselled about differences between full code, DNRCC and DNRCCA. Patient elects to be full code. Total face to face time: 16 mins Charges/Coding Visit Charges OBSV E&M: 72206 Initial observation care L3 Procedures Hospitalists Procedures: 16041 Advncd Care Plan 30 Min
[2021-04-08] MEDS: 0.9% Normal Saline 1,000 ML 999 ML IV (21:01)
[2021-04-08 21:02] VITALS: BP 110/70; PULSE 70; RESP 16; TEMP 526.1; TEMP 979; O2SAT 99
[2021-04-08 22:13] VITALS: BMI 21.2
[2021-04-08 22:31] VITALS: BP 106/57; PULSE 69; RESP 16; TEMP 36.7; O2SAT 97
[2021-04-08] MEDS: 0.9% Normal Saline 1,000 ML 150 ML IV (22:36)
[2021-04-08 23:20] VITALS: PULSE 71
[2021-04-09] VITALS (11 sets, daily range): BP systolic 96–106; BP diastolic 42–61; PULSE 60–70; RESP 16–18; TEMP 36.4–37; O2SAT 95–99
[2021-04-09] MEDS: 0.9% Normal Saline 1,000 ML 150 ML IV (05:00)
[2021-04-09] MEDS: Levothyroxine 100 MCG Tablet PO (05:01)
[2021-04-09 07:13] LABS: Absolute Lymphocyte Count 1.54 X10^3/uL (0.83-4.51); Absolute Neutrophil Count 3.1 X10^3/uL (2.0-7.7); Basophil# 0.06 X10^3/uL; Basophil% 1.1 % (0-1); Eosinophils% 1.8 % (0-5); Hematocrit 36.4 % (37-47); Hemoglobin 12.2 g/dL (12.0-15.0); Lymphocyte # 1.54 X10^3/ul (0.83-4.51); Lymphocyte % 27.2 % (19-41); Mean Corp Hgb Conc 33.5 g/dL (32-36); Mean Corpuscular Hgb 29.9 pg (27.0-32.0); Mean Corpuscular Volume 89.2 fL (81-99); Mean Platelet Vol. 9.6 fl (6.2-12.0); Monocyte# 0.86 X10^3/uL; Monocyte% 15.2 % (0-10); NRBC Flagged by Analyzer 0 % (0-5); Neutrophil # 3.09 X10^3/uL (2.7-7.7); Neutrophil % 54.3 % (47-70); Platelet Count 262 K/mm3 (150-450); RBC Distribution Width CV 12.7 % (11.6-14.6); RBC Distribution Width SD 41.1 fl (35.1-43.9); Red Blood Count 4.08 M/mm3 (4.2-5.4); White Blood Count 5.7 K/mm3 (4.4-11.0)
--- NOTE | 2021-04-09 07:19 | PN.HOSP_ITS ---
Subjective Subjective Patient with improvements initial presentation with lessened nausea and current toleration of clears. She did have diarrhea this morning and discussed with her plan for C. difficile as well as enteric pathogen to be sent. Patient per discussion did not have CT scan of Mel however belly is soft, nontender to pal pation therefore per discussion with patient deferred at this time. Patient does note that [place] town and has city water. Patient denies fevers, chills, emesis, abdominal pain, chest pain or dyspnea. Objective Data Objective Data Vital Signs: Vital Signs Temp Pulse Resp BP Pulse Ox 98.2 F 65 16 97/58 L 98 04/09/21 04:30 04/09/21 05:05 04/09/21 04:30 04/09/21 04:30 04/09/21 04:30 Oxygen Delivery Method Room Air Weight: 120 lb 2.431 oz Body Mass Index (BMI) 21.2 Intake & Output: Intake and Output for Last 24 Hours 04/07/21 04/08/21 04/09/21 23:59 23:59 23:59 Intake Total 1999 / 1999 1160 / 1160 Output Total 600 / 600 600 / 600 Balance 1400 / 1400 560 / 560 Lab / Micro Data Result Diagrams: 04/09/21 06:33 04/09/21 08:27 Labs: Laboratory Results - last 24 hr 04/08/21 16:40: WBC 8.0, RBC 5.37, Hgb 16.1 H, Hct 47.4 H, MCV 88.3, MCH 30.0, MCHC 34.0, RDW Std Deviation 41.3, RDW Coeff of Humphrey 12.8, Plt Count 459 H, MPV 9.8, Immature Gran % (Auto) 0.400, Neut % (Auto) 69.1, Lymph % (Auto) 15.9 L, [place] % (Auto) 13.6 H, Eos % (Auto) 0.1, Baso % (Auto) 0.9, Absolute Neuts (auto) 5.5, Absolute Lymphs (auto) 1.27, Nucleated RBC % 0 04/08/21 16:40: Sodium 126 L, Potassium 3.9, Chloride 91 L, Carbon Dioxide 21.0, Anion Gap 14, BUN 27 H, Creatinine 2.42 H, Estim Creat Clear Calc 16.87, Est GFR (MDRD) Af Amer 25 L, Est GFR (MDRD) Non-Af 21 L, BUN/Creatinine Ratio 11.2, Glucose 136 H, Calcium 9.5 04/08/21 18:50: Total Bilirubin 0.80, Direct Bilirubin 0.20, AST 19, ALT 23, Alkaline Phosphatase 112, Total Protein 8.9 H, Albumin 4.1, Globulin 4.8 H, Lipase 230 04/08/21 19:40: Urine Color Yellow, Urine Clarity Sl. Cloudy, Urine pH 5.0, Ur Specific [place] 1.025, Urine Protein 30 H, Urine Glucose (UA) Normal, Urine Ketones 5 H, Urine Occult Blood 10 H, Urine Nitrite Negative, Urine Bilirubin 3 H, Urine Urobilinogen 1 H, Ur Leukocyte Esterase 25 H, Urine RBC 0-5 SEEN, Urine WBC 0-5 SEEN, Ur Squamous Epith Cells 0-5 SEEN, Amorphous Sediment 1+ URATE, Urine Bacteria 0 SEEN, Hyaline Casts 5-10 SEEN, Urine Mucus 0 SEEN 04/09/21 06:33: WBC 5.7, RBC 4.08 L, Hgb 12.2, Hct 36.4 L, MCV 89.2, MCH 29.9, MCHC 33.5, RDW Std Deviation 41.1, RDW Coeff of Humphrey 12.7, Plt Count 262, MPV 9.6, Immature Gran % (Auto) 0.400, Neut % (Auto) 54.3, Lymph % (Auto) 27.2, [place] % (Auto) 15.2 H, Eos % (Auto) 1.8, Baso % (Auto) 1.1 H, Absolute Neuts (auto) 3.1, Absolute Lymphs (auto) 1.54, Nucleated RBC % 0 Physical Exam Narrative Physical Examination: General: Awake, alert, oriented x 3 and cooperative, seated upright in the medical surgical bed in no apparent distress. Skin: Normal color, normal turgor, no icterus, no cyanosis. HEENT: AT/NC, EOMI, PERRLA, improved mildly dry MM. Lungs: CTA bilaterally, mild decrease BL bases, no rales, ronchi or wheezing. Heart: Regular rate and rhythm; no gallop, rub audible. Abdomen: Soft, NTTP, ND, mildly hyperactive BS. Extremities: No cyanosis, clubbing, or edema. Neurological: Patient awake, alert, oriented as noted, cognitive function in tact; pupils equally reactive to light and accommodation, cranial nerves II-XII grossly normal, moving all 4 extremities, no focal deficits, strength mildly global decreased, improving. Psychiatric: Affect appears fatigued otherwise normal, no acute evidence of depressive or anxiety feelings. Assessment & Plan Assessment/Plan (1) Acute kidney injury: (2) Gastroenteritis: PLAN: The patient is a 75 y/o F w/ PMHx: Anxiety and Depression, Hypothyroidism, GERD w/ Hx Gastric Ulcer w/ perforation, Ulcerative Colitis s/p prior colectomy who presents to the [facility] ED on 04/08/21 with history of abdominal cramping, nausea, emesis and poor oral intake over the last 5 days with recent outside facility [facility] evaluation discharged 2 days prior to current presentation given ongoing persistent symptoms. 1. N/V/D, Suspicious for Acute Gastroenteritis: Admitted to VT, continue aggressive hydration, will obtain c-diff, stool cx, will not start antibiotics at this time given unclear source pending stool studies as may be viral gastroenteritis. CBC with no marked WBC elevation or left shift and afebrile. Anti-emetics, pain regimen PRN. We will continue clear liquids and advance diet as tolerated. If patient continues to clinically improve and transition to regular diet pending stool studies likely will be able to discharge 04/10/21 AM. 2. Acute kidney injury: Secondary to GI losses as noted above. Admission BUN/Cr 27/2.42, prior baseline creatinine noted to be 0.8. 04/09/2021 BUN/creatinine 15/1.15, significantly improved. We will continue hydration and repeat CMP in AM. 3. Acute hyponatremia, hypovolemia associated: Admission sodium 126, likely secondary to GI losses as noted, aggressively hydrated, repeat 04/09/2021 sodium 136, continue judicious hydration with repeat CMP in AM. 4. Hypokalemia: Admission K+ 3.2, magnesium level requested and noted to be 1.7, supplementation given, repeat level in AM. 5. Ulcerative colitis: Patient with history of ulcerative colitis status post colectomy, currently abdomen soft, nontender to palpation, deferring any CT at this point, encourage continued outpatient follow-up with Dr. Herr, gastroenterology. 6. Hypothyroidism: Continue home synthroid regimen. 7. Anxiety and depression: We will continue patient home sertraline regimen. 8. History of GERD with gastric ulcer with history of perforation: We will continue patient on twice daily PPI and add Carafate. 9. DVT prophylaxis: Glenis Gregory. Charges/Coding Visit Charges Inpatient E&M: 88013 Subs Hosp L2
[2021-04-09] MEDS: Sertraline 50 MG Tablet 25 MG PO (07:55)
[2021-04-09] MEDS: Pantoprazole Sodium 20 MG Tablet PO ×2 (07:56→23:05)
[2021-04-09] MEDS: Multivitamins,Therapeutic Tablet 1 TABLET PO (07:56)
[2021-04-09] MEDS: Calcium Carb/Vitamin D 1 TABLET Tablet PO (07:56)
[2021-04-09] MEDS: Enoxaparin 30 MG/0.3 ML Syringe SC (08:00)
[2021-04-09] MEDS: Cholecalciferol (VIT D3) 25 MCG TABLET (1,000 UNITS) 125 MCG PO (08:01)
[2021-04-09 09:08] LABS: Anion Gap 7 (5-15); BUN 15 mg/dL (7-18); Calcium,Total 7.8 mg/dL (8.5-10.1); Chloride 107 mmol/L (98-107); Creatinine, Serum 1.15 mg/dL (0.55-1.02); EST Glomerular Filtration Rate 49 mL/min (>60); Est Glom Filt Rate - Afr Amer 59 mL/min (>60); Glucose 99 mg/dL (74-106); Magnesium 1.7 mg/dL (1.6-2.6); Potassium 3.2 mmol/L (3.5-5.1); Sodium Level 136 mmol/L (136-145)
[2021-04-09] MEDS: Potassium Chloride Oral Tablet 20 MEQ PO (10:33)
[2021-04-09] MEDS: Sucralfate 1 GM Tablet PO ×3 (10:34→23:05)
[2021-04-09] MEDS: Vitamin B Comp W-C Capsule 1 CAP PO (12:32)
--- NOTE | 2021-04-09 13:00 | CASEMGMT ---
RN CM FINAL DRESSING CUTTER CM to room to meet with patient for initial transition planning/care coordination assessment. RN RIN introduced self and role at [facility]. Pt voices understanding and consents to assessment at this time. Pt resting in bed in no distress at this time. Pt is A/O at this time and answers all questions appropriately. Care providers, pharmacy, and demographics verified/updated at this time. PCP: Dr Reeves Specialists:Dr Ramirez Preferred Pharmacy:[facility] Insurance: [employer] [place] Prescription Benefit: Yes Living Will/HPOA: Has both LW and HPOA, who is her niece, Bina LNOK: Niece, Bina. Sis-in-law, Twilla Living Arrangements: Lives alone in one story home/condo. 2 steps to enter thru the garage. Independent. Transportation: Pt states drives self and states no transportation concerns at this time. DME: Ambulates independently w/no DME. Has a BP machine Pt states no need for further DME at this time. HHC/SNF: No history of either. No needs identified. Pt denies need for HHC or OP therapy. Pt wishes to return home and states has no concerns with going home at time of discharge. CM to follow for any discharge planning/needs. Pt voices no concerns/needs at this time. Advised pt to ask for CM if any questions/concerns/needs arise. Voices understanding. PLAN: Home w/discharge plans in place. Sean WEBER RN, CM
--- NOTE | 2021-04-09 14:25 | CASEMGMT ---
RN CM REFRIGERATING TECHNICIAN CM to room to meet with patient for initial transition planning/care coordination assessment. RN RIN introduced self and role at [facility]. Pt voices understanding and consents to assessment at this time. Pt resting in bed in no distress at this time. Pt is A/O at this time and answers all questions appropriately. Care providers, pharmacy, and demographics verified/updated at this time. PCP: Dr Montalvo Specialists: Dr Amos--oncology, Dr Joiner-pulmonology, Dr Sarah-dermatology, Dr Sarah-ophthalmology Preferred Pharmacy: [facility] Insurance:[employer], MMO Prescription Benefit: Yes, [place] Living Will/HPOA: [facility] does not have LW or HCPOA . Interested in more information but states does not want to talk with SW at this time to complete paperwork. Provided information on advanced directives and given Social Service rac card with number to call if chooses in the future to utilize [facility] social work for advanced directive completion. LNOK:, Marcy Living Arrangements: Lives w/his in one-story home w/3 steps to enter thru the garage. Independent w/ADL's. /pt share home mgmt tasks. Pt/ stay in [place] yearly from Mid-Jun thru Mid-December. Transportation: Pt states drives self and states no transportation concerns at this time. also drives DME: States has the following DME: CPAP and nebulizer. Pt does not have Home O2. Pt was provided with list of DME providers consistent with the patient's preferred geographic region, medical needs, and insurance network. The pt's preferred provider is [facility] d/t he aware [facility] has offices in [place] as well as [place]. Pt states no need for further DME at this time. HHC/SNF: No hx of HHC. [facility] stroke about 4 yrs ago. Pt denies need for HHC or OP therapy. Pt wishes to return home and states has no concerns with going home at time of discharge. CM to follow for home oxygen needs and any further discharge planning/needs. Pt voices no further concerns/needs at this time. Advised pt to ask for CM if any further questions/concerns/needs arise. Voices understanding. PLAN: Home w/spousal support and discharge plans in place. Pt will need home oxygen/ambulatory testing completed prior to discharge. If pt qualifies for Home O2, his preferred provider is [facility]. Green sheet placed on chart w/instructions for home O2 set up, if pt qualifies. Sean BSN RN CM
[2021-04-09] MEDS: Loperamide 2 MG Capsule PO (18:53)
[2021-04-10 02:35] VITALS: BP 94/50; PULSE 60; RESP 18; TEMP 36.6; O2SAT 97
[2021-04-10 03:00] VITALS: PULSE 59
[2021-04-10] MEDS: Levothyroxine 100 MCG Tablet 200 MCG PO (06:18)
[2021-04-10] MEDS: Sucralfate 1 GM Tablet PO ×2 (06:18→10:40)
--- NOTE | 2021-04-10 06:41 | DCINST_ITS ---
Discharge Instructions Diet Discharge Diet: - (Advise continued diet which does not provoke any recurrent nausea symptoms, de-escalate to clears again if any recurrent symptoms.) Activity Discharge Activity: - (Slowly advance your activity given improving status. Avoid prolonged heat/sun exposure until completely resolved.) Dressing / Incision Call your doctor if you observe: Fever of 101 or Higher, Shortness of breath, Dizziness, Swelling in the ankles, Chest pain, Prolonged hiccupping, Increased palpitations (irregular heartbeat), Uncontrolled pain and - (Recurrent intractable diarrhea, nausea, emesis, unable to maintain appropriate oral intake.) Follow Up Care Test Results: Test results from this visit will be discussed in further detail at your follow-up appointment, if applicable. Discharge Plan Admission Admit Date/Time: 04/09/21 16:07 Primary Reason for Your Visit: Gastroenteritis, JANY, Hyponatremia Attending Provider: Cristina Tran Primary Care Provider: Rafita Reeves Instructions Patient Instructions: ED Dehydration (Adult), ED Gastroenteritis, Viral (Adult) Additional Instructions / Restrictions: ADDITIONAL: Given your history of gastritis/ulcer, please continue the increased protonix and carafate especially given your improvement with resolved nausea, emesis and improved oral intake. Please continue this until re-assessment per Dr. Cunningham. Again, this presentation may be primarily gastroenteritis; however, given your improvement on this regimen we will opt to continue until your evaluation. Discharge Orders/Prescriptions Prescriptions: New loperamide 2 mg Capsule 2 mg PO Q2H PRN PRN (Reason: diarrhea) 5 Days Qty: 40 RF: 0 sucralfate 1 gram Tablet 1 g PO 1HR_ACHS 30 Days Qty: 120 RF: 0 pantoprazole 20 mg Tablet,Delayed Release (Dr/Ec) 20 mg PO BID 30 Days Qty: 60 RF: 0 Continued sertraline [Zoloft] 25 mg tablet 25 mg PO DAILY RF: 0 multivitamin Tablet 1 tab PO DAILY RF: 0 calcium carbonate-vitamin D3 600 mg(1,500mg) -200 unit Tablet 2 tab PO DAILY RF: 0 vitamin B complex Capsule 1 cap PO DAILY RF: 0 cholecalciferol (vitamin D3) [Vitamin D3] 125 mcg (5,000 unit) Tablet 125 mcg PO DAILY RF: 0 levothyroxine 100 mcg tablet 100 mcg PO MOTUWETHFR RF: 0 levothyroxine 100 mcg tablet 200 mcg PO SUSA RF: 0 Held magnesium glycinate 100 mg Tablet 100 mg PO DAILY RF: 0 Hold Instructions: Resume on 04/17/21. Hold until diarrhea completely resolved. senna 8.6 mg capsule 8.6 mg PO DAILY Qty: 7 RF: 0 Hold Instructions: Resume on 04/17/21. Hold until diarrhea completely resolved. Discontinued pantoprazole [Protonix] 20 mg tablet,delayed release (DR/EC) 20 mg PO DAILY RF: 0 Referrals / Follow Up: Rafita Reeves DO [Primary Care Provider] - (Follow-up within 3-5 days to review admission.) Jaswinder Cunningham MD [CONSULTING PHYSICIAN] - (Follow-up with Dr. Cunningham within 2-4 weeks.) Disposition Disposition (needs filled in before D/C Order can be placed): Home, Self Care
--- NOTE | 2021-04-10 06:43 | PCM.DC.SUM ---
Providers Date of Admission: 04/09/21 Primary Care Physician: Dr. Rafita Reeves, DO Reason For Visit: INTRACTABLE NAUSEA AND VOMITING, JANY Diagnosis Discharge Diagnosis (1) Acute kidney injury: Status: Acute Code(s): N17.9 - Acute kidney failure, unspecified (2) Gastroenteritis: Status: Acute Code(s): K52.9 - Noninfective gastroenteritis and colitis, unspecified Medications at Discharge Home Medications sertraline 25 mg tablet 25 mg PO DAILY 07/23/18 calcium carbonate-vitamin D3 2 tab PO DAILY 01/24/21 cholecalciferol (vitamin D3) [Vitamin D3] 125 mcg PO DAILY 01/24/21 magnesium glycinate 100 mg PO DAILY 01/24/21 multivitamin 1 tab PO DAILY 01/24/21 senna 8.6 mg PO DAILY #7 cap 01/24/21 vitamin B complex 1 cap PO DAILY 01/24/21 levothyroxine 100 mcg PO MOTUWETHFR 04/08/21 levothyroxine 200 mcg PO SUSA 04/08/21 loperamide 2 mg PO Q2H PRN PRN 5 Days #40 cap 04/10/21 pantoprazole 20 mg PO BID 30 Days #60 tab 04/10/21 sucralfate 1 g PO 1HR_ACHS 30 Days #120 tab 04/10/21 Hospital Course Operations None Procedures EKG Summary of Care Provided Minutes Spent on Discharge: 35 Hospital Course: Discharge Diagnoses: 1. N/V/D, Suspicious for Acute Gastroenteritis, possibly Viral 2. Acute kidney injury, secondary to GI losses as noted above, Resolved 3. Acute hyponatremia, hypovolemia secondary to #1, Resolved 4. Hypokalemia secondary to #1 5. Ulcerative colitis 6. Hypothyroidism 7. Anxiety and depression 8. History of GERD with gastric ulcer with history of perforation Discharge Summary: The patient is a 75 y/o F w/ PMHx: Anxiety and Depression, Hypothyroidism, GERD w/ Hx Gastric Ulcer w/ perforation, Ulcerative Colitis s/p prior colectomy who presented to the [facility] ED on 04/08/21 with history of abdominal cramping, nausea, emesis and poor oral intake over the last 5 days with recent outside facility [facility] evaluation discharged 2 days prior to current presentation given ongoing persistent symptoms. Admitted to [place], continue aggressive hydration, obtained stool studies with negative c-diff and enteric pathogen with initiation of PRN immodium without marked usage need as improved prior, maintained on PPI, added carafate too with notable improvement in patient nausea, oral intake slowly advanced from clears to regular. Patient with notable JANY with admission BUN/Cr 27/2.42, prior baseline creatinine noted to be 0.8. 04/10/2021 BUN/creatinine 9/0.81, significantly improved. Patient electrolytes also improved with hydration. Given improved clinical status, resolved nausea, emesis and diarrhea with resolved JANY, patient discharged to home in stable condition with recommended PCP and GI follow-up given underlying disease history. Discharge Time: > 35 Minutes DAY OF DISCHARGE PROGRESS NOTE: Subjective: Patient without acute event overnight per self and nursing report. Patient tolerated transition to regular diet without issue with no further abdominal cramping, nausea, vomiting or diarrhea. Discussed results which included normalization of her renal function and negative stool studies. Patient denies fever, chills, chest pain or dyspnea. Patient agreeable to discharge to home. Patient will be discharged with follow-up with primary care physician within 3-5 days in addition to follow-up with Dr. Cunningham, her GI physician. Objective: T 98.7, heart rate 61, BP 96/53, respiratory rate 18, 99% on room air. Physical Examination: General: awake, alert, oriented x 3 and cooperative, seated upright in the MS bed, NAD. Skin: normal color, turgor, no icterus, cyanosis. HEENT: AT/NC, EOMI, PERRLA, improved MMM. Lungs: CTA bilaterally, moderate effort, mild decrease BL bases, no rales, ronchi or wheezing; Heart: Regular rate and rhythm; no gallop, rub audible. Abdomen: soft, NTTP, ND, normalized normal BS. Extremities: no cyanosis, clubbing, or edema. Neurological: patient awake, alert, oriented as noted; cognitive function appears intact upon questioning,; pupils equally reactive to light and accomodation; cranial nerves II-XII grossly normal, moving all 4 extremities, strength improved, only mildly reduced. Psychiatric: affect appears more rested, normal, no acute evidence of depressive or anxiety feelings. Assessment and Plan: Please see hospital summary above. Weight / BMI Weight Weight: 120 lb 2.431 oz Body Mass Index (BMI) 21.2 ABG / Lab / Microbiology Data Result Diagrams: 04/10/21 07:10 04/10/21 07:10 Laboratory: Laboratory Results - last 24 hr 04/09/21 06:33: WBC 5.7, RBC 4.08 L, Hgb 12.2, Hct 36.4 L, MCV 89.2, MCH 29.9, MCHC 33.5, RDW Std Deviation 41.1, RDW Coeff of Humphrey 12.7, Plt Count 262, MPV 9.6, Immature Gran % (Auto) 0.400, Neut % (Auto) 54.3, Lymph % (Auto) 27.2, [place] % (Auto) 15.2 H, Eos % (Auto) 1.8, Baso % (Auto) 1.1 H, Absolute Neuts (auto) 3.1, Absolute Lymphs (auto) 1.54, Nucleated RBC % 0 04/09/21 06:33: Sodium Cancelled, Potassium Cancelled, Chloride Cancelled, Carbon Dioxide Cancelled, Anion Gap Cancelled, BUN Cancelled, Creatinine Cancelled, Estim Creat Clear Calc Cancelled, Est GFR (MDRD) Af Amer Cancelled, Est GFR (MDRD) Non-Af Cancelled, BUN/Creatinine Ratio Cancelled, Glucose Cancelled, Calcium Cancelled 04/09/21 06:33: Phosphorus Cancelled, Magnesium Cancelled 04/09/21 08:27: Sodium 136, Potassium 3.2 L, Chloride 107, Carbon Dioxide 22.0, Anion Gap 7, BUN 15, Creatinine 1.15 H, Estim Creat Clear Calc 35.50, Est GFR (MDRD) Af Amer 59 L, Est GFR (MDRD) Non-Af 49 L, BUN/Creatinine Ratio 13.0, Glucose 99, Calcium 7.8 L, Phosphorus 2.0 L, Magnesium 1.7 Microbiology: Microbiology 04/09/21 12:00 Stool C. difficile DNA Amplification - Final 04/09/21 12:30 Stool Enteric Bacteriology - Final 04/09/21 12:30 Stool Stool Lactoferrin - Final D/C Instructions Discharge Diet: - (Advise continued diet which does not provoke any recurrent nausea symptoms, de-escalate to clears again if any recurrent symptoms.) Call your doctor if you observe: Fever of 101 or Higher, Shortness of breath, Dizziness, Swelling in the ankles, Chest pain, Prolonged hiccupping, Increased palpitations (irregular heartbeat), Uncontrolled pain and - (Recurrent intractable diarrhea, nausea, emesis, unable to maintain appropriate oral intake.) Meaningful Use Info Meaningful Use Diagnoses (Choose all that apply): None applicable Discharge Plan Admission Admit Date/Time: 04/09/21 16:07 Primary Reason for Your Visit: Gastroenteritis, JANY, Hyponatremia Attending Provider: Cristina Tran Primary Care Provider: Rafita Reeves Instructions Patient Instructions: ED Dehydration (Adult), ED Gastroenteritis, Viral (Adult) Additional Instructions / Restrictions: ADDITIONAL: Given your history of gastritis/ulcer, please continue the increased protonix and carafate especially given your improvement with resolved nausea, emesis and improved oral intake. Please continue this until re-assessment per Dr. Cunningham. Again, this presentation may be primarily gastroenteritis; however, given your improvement on this regimen we will opt to continue until your evaluation. Discharge Orders/Prescriptions Prescriptions: New loperamide 2 mg Capsule 2 mg PO Q2H PRN PRN (Reason: diarrhea) 5 Days Qty: 40 RF: 0 sucralfate 1 gram Tablet 1 g PO 1HR_ACHS 30 Days Qty: 120 RF: 0 pantoprazole 20 mg Tablet,Delayed Release (Dr/Ec) 20 mg PO BID 30 Days Qty: 60 RF: 0 Continued sertraline [Zoloft] 25 mg tablet 25 mg PO DAILY RF: 0 multivitamin Tablet 1 tab PO DAILY RF: 0 calcium carbonate-vitamin D3 600 mg(1,500mg) -200 unit Tablet 2 tab PO DAILY RF: 0 vitamin B complex Capsule 1 cap PO DAILY RF: 0 cholecalciferol (vitamin D3) [Vitamin D3] 125 mcg (5,000 unit) Tablet 125 mcg PO DAILY RF: 0 levothyroxine 100 mcg tablet 100 mcg PO MOTUWETHFR RF: 0 levothyroxine 100 mcg tablet 200 mcg PO SUSA RF: 0 Held magnesium glycinate 100 mg Tablet 100 mg PO DAILY RF: 0 Hold Instructions: Resume on 04/17/21. Hold until diarrhea completely resolved. senna 8.6 mg capsule 8.6 mg PO DAILY Qty: 7 RF: 0 Hold Instructions: Resume on 04/17/21. Hold until diarrhea completely resolved. Discontinued pantoprazole [Protonix] 20 mg tablet,delayed release (DR/EC) 20 mg PO DAILY RF: 0 Referrals / Follow Up: Rafita Reeves DO [Primary Care Provider] - (Follow-up within 3-5 days to review admission.) Jaswinder Cunningham MD [CONSULTING PHYSICIAN] - (Follow-up with Dr. Cunningham within 2-4 weeks.) Disposition Disposition (needs filled in before D/C Order can be placed): Home, Self Care Charges/Coding Visit Charges Inpatient E&M: 87428 Disch Hosp
[2021-04-10 07:31] LABS: Absolute Lymphocyte Count 1.31 X10^3/uL (0.83-4.51); Absolute Neutrophil Count 3.2 X10^3/uL (2.0-7.7); Basophil# 0.06 X10^3/uL; Basophil% 1.1 % (0-1); Eosinophil# 0.26 X10^3/uL; Eosinophils% 4.9 % (0-5); Hematocrit 37.6 % (37-47); Hemoglobin 12.6 g/dL (12.0-15.0); Lymphocyte # 1.31 X10^3/ul (0.83-4.51); Lymphocyte % 24.8 % (19-41); Mean Corp Hgb Conc 33.5 g/dL (32-36); Mean Corpuscular Hgb 30.4 pg (27.0-32.0); Mean Corpuscular Volume 90.6 fL (81-99); Mean Platelet Vol. 9.5 fl (6.2-12.0); Monocyte% 9.5 % (0-10); NRBC Flagged by Analyzer 0 % (0-5); Neutrophil # 3.15 X10^3/uL (2.7-7.7); Neutrophil % 59.5 % (47-70); Platelet Count 257 K/mm3 (150-450); RBC Distribution Width CV 12.9 % (11.6-14.6); RBC Distribution Width SD 42.5 fl (35.1-43.9); Red Blood Count 4.15 M/mm3 (4.2-5.4); White Blood Count 5.3 K/mm3 (4.4-11.0)
[2021-04-10] MEDS: Multivitamins,Therapeutic Tablet 1 TABLET PO (07:56)
[2021-04-10 08:03] LABS: ALB/GLOB Ratio 0.8 RATIO (0.9-2.4); AST(SGOT) 22 U/L (15-37); Alanine Aminotransfer ALT/SGPT 19 U/L (13-56); Albumin, Serum 2.8 g/dL (3.2-5.0); Alkaline Phosphatase 72 U/L (45-117); Anion Gap 6 (5-15); BUN 9 mg/dL (7-18); BUN/Creat Ratio 11.2 RATIO (10-20); Calcium,Total 8.4 mg/dL (8.5-10.1); Chloride 107 mmol/L (98-107); Creatinine, Serum 0.81 mg/dL (0.55-1.02); EST Glomerular Filtration Rate 74 mL/min (>60); Est Glom Filt Rate - Afr Amer 89 mL/min (>60); Estimated Creatinine Clearance 50.41 ml/min; Globulin 3.3 g/dL (2.2-4.2); Glucose 81 mg/dL (74-106); Potassium 3.8 mmol/L (3.5-5.1); Protein, Total 6.1 g/dL (6.4-8.2); Sodium Level 136 mmol/L (136-145)
[2021-04-10 10:35] VITALS: BP 96/53; PULSE 61; RESP 18; TEMP 37.1; O2SAT 99
[2021-04-10] MEDS: Vitamin B Comp W-C Capsule 1 CAP PO (10:40)
[2021-04-10] MEDS: Enoxaparin 30 MG/0.3 ML Syringe SC (10:40)
[2021-04-10] MEDS: Cholecalciferol (VIT D3) 25 MCG TABLET (1,000 UNITS) 125 MCG PO (10:41)
[2021-04-10] MEDS: Pantoprazole Sodium 20 MG Tablet PO (10:41)
[2021-04-10] MEDS: Calcium Carb/Vitamin D 1 TABLET Tablet PO (10:41)
[2021-04-10] MEDS: Sertraline 50 MG Tablet 25 MG PO (10:41)
[2021-04-10 13:28] VITALS: BP 95/53; PULSE 67; RESP 18; TEMP 36.8; O2SAT 98
== END 2021-04-10 13:36 | disposition home or self-care (01) | DRG 392 ==
LOC: ED 20:46 → MS3 21:17
PROVIDERS: Admitting Provider Student in an Organized Health Care Education/Training Program; Emergency Provider Emergency Medicine; PCP Student in an Organized Health Care Education/Training Program; Visit Provider Family Medicine
DX: A08.4 Viral intestinal infection, unspecified (principal); E87.1 Hypo-osmolality and hyponatremia; N17.9 Acute kidney failure, unspecified; K51.90 Ulcerative colitis, unspecified, without complications; E87.6 Hypokalemia; E03.9 Hypothyroidism, unspecified; E86.0 Dehydration; E86.1 Hypovolemia; F32.9 Major depressive disorder, single episode, unspecified; F41.9 Anxiety disorder, unspecified; M19.90 Unspecified osteoarthritis, unspecified site; Z87.01 Personal history of pneumonia (recurrent); Z90.49 Acquired absence of other specified parts of digestive tract; Z87.19 Personal history of other diseases of the digestive system; Z79.899 Other long term (current) drug therapy; Z79.890 Hormone replacement therapy; R19.7 Diarrhea, unspecified
CPT/HCPCS: 36415; 80048; 80053; 80076; 81001; 83630; 83690; 83735; 84100; 85025; 87493; 87506; 96361; 96372; 96374; 96375; 99218; 99284; J7030; J7050; A4216; G0378; J2405

== ENCOUNTER 2021-11-25 07:20 | Inpatient (IN) | payer MEDICARE, SELFPAY ==
[2021-11-25] VITALS (11 sets, daily range): BP systolic 110–155; BP diastolic 55–92; PULSE 74–90; RESP 15–20; TEMP 36.1–37.1; O2SAT 93–98; BMI 21.4; BMI 22.1
--- NOTE | 2021-11-25 07:26 | EKG12_ITS ---
Test Reason : LE Blood Pressure : / mmHG Vent. Rate : 070 BPM Atrial Rate : 070 BPM P-R Int : 176 ms QRS Dur : 092 ms QT Int : 434 ms P-R-T Axes : 042 047 038 degrees QTc Int : 468 ms Sinus rhythm with Premature atrial complexes Otherwise normal ECG Confirmed by MARILYN BILLY, ERIBERTO ([id number]), research editor TOM WELLINGTON ([id number]) on 11/26/2021 9:06:10 AM Referred By: MANASA Confirmed By:ERIBERTO SANDERS MD
--- NOTE | 2021-11-25 07:26 | RAD_ITS ---
STUDY: X-RAY CHEST REASON FOR EXAM: Female, 76 years old. Chest pain TECHNIQUE: Single AP portable view of the chest. COMPARISON: Comparison is made with prior study 07/23/2012. FINDINGS: EKG electrodes are seen. Hyperinflation. The lungs are clear. There is no demonstrated pleural abnormality. Normal size heart. Normal mediastinum and edil. Normal visualized pulmonary arteries. There is atherosclerotic tortuosity of the aortic arch and descending thoracic aorta. Normal visualized thoracic spine. Normal visualized ribs, clavicles, and shoulders. There is no demonstrated abnormality of the visualized soft tissue structures of the upper abdomen. RAD/Chest 1 View (Portable) IMPRESSION: Hyperinflation. The lungs are clear. Electronically Signed: Dev Conklin MD at 8:05 EST ,
--- NOTE | 2021-11-25 07:28 | EX.ED.DYSGE1 ---
HPI History of Present Illness Chief Complaint: Lower Extremity Injury Narrative Narrative: 76-year-old female presenting with hiccups and body cramps. Initially she told me that she has been cramping in her legs for the last 2 to 3 days. She states that she has had this before, and she believes it was due to dehydration. Patient states she has been able to eat and drink although she has had hiccups and nausea. She states anytime she stick something in her mouth she gets the hiccups. She states that anytime she twists her trunk or moves she gets cramping which is away across the upper abdomen/lower chest wall. She states that it does not hurt right now sitting in the bed but when she moves it gets worse. She states she is not short of breath and she does not have maría abdominal pain. She states she still making urine and having bowel movements. She denies a fever, chills, cough, shortness of breath PFSH PFSH Medical History Acute hyponatremia Acute kidney injury Anemia Anxiety Arthritis Back pain Cancer Depression Gastroenteritis History of pneumonia Hypothyroidism Incontinence Skin cancer Stomach ulcer Thyroid disease Home Medications sertraline 25 mg tablet 25 mg PO DAILY 07/23/18 [History Last Taken Unknown] calcium carbonate-vitamin D3 2 tab PO DAILY 01/24/21 [History Last Taken Unknown] cholecalciferol (vitamin D3) [Vitamin D3] 125 mcg PO DAILY 01/24/21 [History Last Taken Unknown] magnesium glycinate 100 mg PO DAILY 01/24/21 [History Last Taken Unknown] multivitamin 1 tab PO DAILY 01/24/21 [History Last Taken Unknown] levothyroxine 100 mcg PO MOTUWETHFR 04/08/21 [History Last Taken Unknown] levothyroxine 200 mcg PO SUSA 04/08/21 [History Last Taken Unknown] loperamide 2 mg PO Q2H PRN PRN 5 Days #40 cap 04/10/21 [Rx Last Taken Unknown] pantoprazole 40 mg PO DAILY 11/25/21 [History Last Taken Unknown] Allergy/AdvReac Type Severity Reaction Status Date / Time Penicillins Allergy Swelling Verified 11/25/21 07:28 Surgical History History of appendectomy History of cholecystectomy History of colectomy Perforated ulcer Social History Smoking Status: Never smoker ROS ROS ED Constitutional Constitutional ED: Denies chills or fever(s) Eyes Eyes: Denies blurry vision or diplopia ENT ENT ED: Denies rhinorrhea or sore throat Cardiovascular Cardiovascular: Denies chest pain Respiratory/Chest Respiratory/Chest: Denies cough or dyspnea Gastrointestinal Gastrointestinal: Reports nausea and other Details: Hiccups. Muscle cramps of the abdomen. Musculoskeletal Musculoskeletal: Reports back pain and other Details: Body cramps Integumentary Denies rash Neurologic Neurologic: Denies headache(s) or paresthesias Psychiatric Psychiatric: Denies anxiety or depression EXAM Physical Exam Const Vital Signs: 11/25/21 07:21 11/25/21 09:19 11/25/21 09:48 Temperature 96.9 F L Temperature Source Temporal Oral Pulse Rate 79 Respiratory Rate 16 Blood Pressure 155/92 H Blood Pressure Mean 113 Pulse Ox 96 97 Oxygen Delivery Method Room Air Room Air 11/25/21 09:51 11/25/21 10:59 Temperature 97.6 F L Temperature Source Temporal Pulse Rate 81 75 Respiratory Rate 15 17 Blood Pressure 134/70 H 110/60 Blood Pressure Mean 91 76 Pulse Ox 95 93 Oxygen Delivery Method Room Air Room Air Positive well nourished General Appearance ED: NAD; Negative for pallor HEENT Reports moist mucous membranes Negative for trauma Eyes PERRL and EOMs intact bilaterally General Eye ED: Negative for pale conjunctiva or scleral icterus Chest Wall inspection of chest normal and palpation of chest normal Resp normal respiratory effort and clear to auscultation bilaterally Cardio regular rate and regular rhythm GI normal to inspection, nondistended, normoactive bowel sounds Neuro oriented x3, CN's II-XII intact bilaterally and no sensory deficits noted Sensorium / Orientation: alert Motor Exam: strength 5/5 throughout Psych mental status grossly normal Skin General Skin Exam: Negative for jaundice or pallor MDM MDM MDM Narrative Medical decision making narrative: Patient presenting with complaints of nausea and hiccups which have been present for a couple of days. She has decreased p.o. intake and is also complaining of cramping which is pretty much diffuse. She is describing it in her legs the most but also with twisting of her trunk she feels that grabbing her abdomen. I did obtain an EKG for this reason and it my interpretation is a sinus rhythm with a ventricular rate of 70 bpm with PACs. Her chest x-ray on my dictation does not show any acute cardiopulmonary process and radiologist agree. Her high-sensitivity troponin was 5. Her CBC does not show any leukocytosis and her hemoglobin hematocrit are stable. Her CMP does show that her potassium is low at 3.2 and her creatinine is elevated at 1.6 patient was already given IV fluids out of concern for hydration. Her total bilirubin was 1.10 and her AST is 39. Lipase is 78. Urinalysis was negative for infection. At about 915 I was called to the bedside and was concerned that the patient was not speaking. She was awake and looking around and moving all 4 extremities but could not speak. At this point a stroke team was called and the patient was taken to CT and had a CT brain and CTA which were both interpreted by the radiologist as negative for stroke or large vessel occlusion. After discussing the patient with the stroke neurologist he did not feel she warranted TPA and he did agree that we should give hypertonic saline which was given and the patient did have intermittent times after this where she could not speak. While reassessing her after her CT scan she was alert and did respond she knew her name but not her age. She was able to move all 4 extremities. Her sensation was intact. She had no slurred speech or facial droop. She did have some difficulty saying potato loader but other than that was speaking normally. She had difficulty with [id number] on both legs. Her vision was normal. At most her NIH stroke scale score would be 5 however this is fluctuating. Given her electrolyte abnormalities I feel she needed to be admitted to the hospital spoke with hospitalist who did consult the primary special educator who recommended discontinuing the hypertonic saline and starting normal saline. This was done. Patient still having alternating levels of consciousness. She will be admitted to the ICU. Impression: 1. Altered mental status 2. Hyponatremia 3. Hypokalemia 4. Hypomagnesemia 5. Acute kidney injury Lab Data Labs: Laboratory Results - last 24 hr 11/25/21 11/25/21 11/25/21 07:30 07:30 07:30 WBC 7.3 RBC 5.15 Hgb 14.5 Hct 42.5 MCV 82.5 MCH 28.1 MCHC 34.1 RDW Std Deviation 37.2 RDW Coeff of Humphrey 12.3 Plt Count 249 MPV 10.0 Immature Gran % (Auto) 0.300 Neut % (Auto) 73.7 H Lymph % (Auto) 10.5 L [place] % (Auto) 14.2 H Eos % (Auto) 0.8 Baso % (Auto) 0.5 Absolute Neuts (auto) 5.4 Absolute Lymphs (auto) 0.77 L Nucleated RBC % 0 Sodium 118 L* Potassium 3.2 L Chloride 85 L Carbon Dioxide 20.0 L Anion Gap 13 BUN 30 H Creatinine 1.60 H Estim Creat Clear Calc 27.34 Est GFR (MDRD) Af Amer 40 L Est GFR (MDRD) Non-Af 33 L BUN/Creatinine Ratio 18.8 Glucose 115 H Calcium 9.6 Magnesium 1.2 L Total Bilirubin 1.10 H Direct Bilirubin 0.19 AST 39 H ALT 29 Alkaline Phosphatase 91 Troponin I High Sens 5 Total Protein 8.2 Albumin 4.2 Globulin 4.0 Lipase 78 Urine Color Urine Clarity Urine pH Ur Specific [place] Urine Protein Urine Glucose (UA) Urine Ketones Urine Occult Blood Urine Nitrite Urine Bilirubin Urine Urobilinogen Ur Leukocyte Esterase Urine RBC Urine WBC Ur Squamous Epith Cells Urine Bacteria Hyaline Casts Urine Mucus 11/25/21 11/25/21 11/25/21 08:40 09:56 09:56 WBC RBC Hgb Hct MCV MCH MCHC RDW Std Deviation RDW Coeff of Humphrey Plt Count MPV Immature Gran % (Auto) Neut % (Auto) Lymph % (Auto) [place] % (Auto) Eos % (Auto) Baso % (Auto) Absolute Neuts (auto) Absolute Lymphs (auto) Nucleated RBC % Sodium 119 L* Potassium 3.2 L Chloride 88 L Carbon Dioxide 19.0 L Anion Gap 12 BUN 28 H Creatinine 1.47 H Estim Creat Clear Calc 29.75 Est GFR (MDRD) Af Amer 45 L Est GFR (MDRD) Non-Af 37 L BUN/Creatinine Ratio 19.0 Glucose 125 H Calcium 7.6 L Magnesium Total Bilirubin Direct Bilirubin AST ALT Alkaline Phosphatase Troponin I High Sens 6 Total Protein Albumin Globulin Lipase Urine Color Yellow Urine Clarity Sl. Cloudy Urine pH 6.0 Ur Specific [place] 1.015 Urine Protein 30 H Urine Glucose (UA) Normal Urine Ketones Negative Urine Occult Blood 10 H Urine Nitrite Negative Urine Bilirubin Negative Urine Urobilinogen Normal Ur Leukocyte Esterase 25 H Urine RBC 0-5 SEEN Urine WBC 0-5 SEEN Ur Squamous Epith Cells 0-5 SEEN Urine Bacteria RARE Hyaline Casts 0-5 SEEN Urine Mucus RARE Radiography Diagnostic Testing: Clinical Impression(s) from Imaging Studies Chest X-Ray 11/25/21 07:26 IMPRESSION: Hyperinflation. The lungs are clear. Electronically Signed: Dev Conklin MD at 8:05 EST , Brain CT 11/25/21 09:27 IMPRESSION: 1. No acute intracranial hemorrhage or mass effect. 2. Asymmetric right middle cerebral artery suggesting possibility of dense MCA. CTA suggested. Electronically Signed: Chadwick Lopez MD (Brooks) at 9:41 EST , ADDENDUM: 11/25/21 0950 IMPRESSION: 1. No acute intracranial hemorrhage or mass effect. 2. Asymmetric right middle cerebral artery suggesting possibility of dense MCA. CTA suggested. N.B. : The above Results were Read Back by Chadwick Lopez MD (Brooks) to Ej Dunn DO, and understanding confirmed on 11/25/2021 09:43:56 (ET). Electronically Signed: Chadwick Lopez MD (Brooks) at 9:41 EST , Head/Neck CTA 11/25/21 09:27 IMPRESSION: 1. Mild atherosclerotic plaque formation of the bilateral cavernous ICAs and right M1 segment, however, no occlusions or visualized intraluminal thrombus or demonstrated aneurysm or hemodynamically significant stenosis of the intracranial arteries. 2. Mild atherosclerotic plaque of the left carotid bulb. Otherwise normal bilateral neck ICAs N.B. : The above Results were Read Back by Dallas Vo MD to Dr. Ej Dunn MD, and understanding confirmed on 11/25/2021 10:21:07 (ET). Electronically Signed: Dallas Vo MD at 10:23 EST , ADDENDUM: 11/25/21 1030 IMPRESSION: 1. Mild atherosclerotic plaque formation of the bilateral cavernous ICAs and right M1 segment, however, no occlusions or visualized intraluminal thrombus or demonstrated aneurysm or hemodynamically significant stenosis of the intracranial arteries. 2. Mild atherosclerotic plaque of the left carotid bulb. Otherwise normal bilateral neck ICAs N.B. : The above Results were Read Back by Dallas Vo MD to Dr. Ej Dunn MD, and understanding confirmed on 11/25/2021 10:21:07 (ET). Electronically Signed: Dallas Vo MD at 10:23 EST , Discharge Plan Triage Chief Complaint: Lower Extremity Injury ED Provider: Ej Dunn Dx/Rx/DC Orders Primary Care Provider: Rafita Reeves
[2021-11-25] MEDS: 0.9% Normal Saline 1,000 ML 999 ML IV (07:34)
[2021-11-25] MEDS: Ondansetron 4 MG/2 ML Vial IV ×3 (07:34→20:22)
[2021-11-25 07:44] LABS: Absolute Lymphocyte Count 0.77 X10^3/uL (0.83-4.51); Absolute Neutrophil Count 5.4 X10^3/uL (2.0-7.7); Basophil# 0.04 X10^3/uL; Basophil% 0.5 % (0-1); Eosinophil# 0.06 X10^3/uL; Eosinophils% 0.8 % (0-5); Hematocrit 42.5 % (37-47); Lymphocyte # 0.77 X10^3/ul (0.83-4.51); Lymphocyte % 10.5 % (19-41); Mean Corpuscular Volume 82.5 fL (81-99); Monocyte# 1.04 X10^3/uL; Monocyte% 14.2 % (0-10); NRBC Flagged by Analyzer 0 % (0-5); Neutrophil # 5.41 X10^3/uL (2.7-7.7); Neutrophil % 73.7 % (47-70); POSITIVE COUNT YES; Platelet Count 249 K/mm3 (150-450); RBC Distribution Width CV 12.3 % (11.6-14.6); RBC Distribution Width SD 37.2 fl (35.1-43.9); Red Blood Count 5.15 M/mm3 (4.2-5.4); White Blood Count 7.3 K/mm3 (4.4-11.0)
[2021-11-25 07:55] LABS: AST(SGOT) 39 U/L (15-37); Alanine Aminotransfer ALT/SGPT 29 U/L (13-56); Albumin, Serum 4.2 g/dL (3.2-5.0); Alkaline Phosphatase 91 U/L (45-117); Bilirubin, Direct 0.19 mg/dL (0.00-0.30); Protein, Total 8.2 g/dL (6.4-8.2)
[2021-11-25 08:12] LABS: Anion Gap 13 (5-15); BUN 30 mg/dL (7-18); BUN/Creat Ratio 18.8 RATIO (10-20); Calcium,Total 9.6 mg/dL (8.5-10.1); Chloride 85 mmol/L (98-107); EST Glomerular Filtration Rate 33 mL/min (>60); Est Glom Filt Rate - Afr Amer 40 mL/min (>60); Estimated Creatinine Clearance 27.34 ml/min; Glucose 115 mg/dL (74-106); Lipase 78 U/L (73-393); Magnesium 1.2 mg/dL (1.6-2.6); Potassium 3.2 mmol/L (3.5-5.1); Sodium Level 118 mmol/L (136-145); Troponin-I HS 5 pg/mL (3.0-54.0)
[2021-11-25 08:38] LABS: Hemoglobin 14.5 g/dL (12.0-15.0); Mean Corp Hgb Conc 34.1 g/dL (32-36); Mean Corpuscular Hgb 28.1 pg (27.0-32.0)
[2021-11-25 08:47] LABS: Color, Urine Yellow (Yellow); Glucose, Dipstick Normal (Normal); Ketone-Dipstick Negative (Negative); Leukocyte Esterase-Dipstick 25 /ul (Negative); Nitrite-Dipstick Negative (Negative); Occult Blood-Urine 10 /ul (Negative); Protein-Dipstick 30 mg/dl (Negative); Specific Gravity, Urine 1.015 (1.002-1.030); Urine Bilirubin Dipstick Negative (Negative); Urine Clarity Sl. Cloudy (Clear); Urine Urobilinogen Normal (Normal)
[2021-11-25 09:02] LABS: Bacteria RARE /hpf (None Seen); Hyaline Cast 0-5 SEEN /lpf (0-5); Mucous, Urine RARE /hpf (<or=2+); Red Blood Cells-Urine 0-5 SEEN /hpf (0-5); Squamous Epithelial Cells - UA 0-5 SEEN /hpf (5-10); White Blood Cells 0-5 SEEN /hpf (0-5)
--- NOTE | 2021-11-25 09:27 | CT_ITS ---
STUDY: CTA HEAD AND NECK WITH CONTRAST REASON FOR EXAM: Female, 76 years old. ALT LOC RADIATION DOSAGE (If Supplied By Facility): CTDIvol = ( 17.14 ) mGy, DLP = ( 1363.69 ) mGycm TECHNIQUE: CT angiography was performed with a multi-detector CT scanner. Data acquisition was obtained from the skull base through the vertex following intravenous administration of IV 100mL Isovue-370. MIP images were reconstructed from the axial data set. Post-processing of the angiographic images was performed, with multiplanar reformation and 3D reconstruction. Individualized dose optimization techniques were used for this CT. COMPARISON: Head CT dated November 25, 2021 FINDINGS: Normal bilateral petrous carotid arteries. There is calcified plaque formation of the right cavernous carotid artery, with a mild stenosis (less than 50%). There is calcified plaque formation of the left cavernous carotid artery, with a mild stenosis (less than 50%). Normal right A1 segments of the anterior cerebral artery. Normal left A1 segments of the anterior cerebral artery. Normal intact anterior communicating artery (ACOM). Normal bilateral A2 segments of the anterior cerebral arteries. There is irregularity of the right M1 and M2 branches with minimal luminal narrowing, suggesting atherosclerotic plaque formation, without an occlusion. Normal left M1 and M2 segments of the middle cerebral arteries, with a normal M1 bifurcation. There is a persistent origin of the right posterior cerebral artery with absence of the posterior communicating artery (PCOM). Normal left posterior communicating artery (PCOM). Normal bilateral vertebral arteries. Normal basilar artery with a normal basilar bifurcation. The visualized bilateral superior cerebellar (SCA) arteries are normal. Normal bilateral P1, P2 and visualized P3 segments of the posterior cerebral arteries. There is no demonstrated aneurysm of the [place] of [place]. There is no demonstrated abnormality of the visualized brain. AORTIC ARCH: Normal visualized aortic arch. Normal origins of the brachiocephalic, left common carotid, and left subclavian arteries. Bilateral breast implants noted. Mild cystic emphysematous changes are seen in the visualized lung salomon. RIGHT CAROTID ARTERIES: Normal right common carotid artery (CCA). Normal right common carotid bulb. Normal origin of the right internal carotid (ICA) artery without a hemodynamically significant stenosis. Normal visualized cervical portion of the right internal carotid artery. There is mild atherosclerotic plaque formation of the origin of the right external carotid artery with less than 50% cross sectional diameter stenosis. LEFT CAROTID ARTERIES: Normal left common carotid artery (CCA). There is mild atherosclerotic plaque formation with minimal narrowing of the left carotid bulb. Normal origin of the left internal carotid (ICA) artery without a hemodynamically significant stenosis. Normal visualized cervical portion of the left internal carotid artery. There is mild atherosclerotic plaque formation of the origin of the left external carotid artery with less than 50% cross sectional diameter stenosis. VERTEBRAL ARTERIES: Normal bilateral vertebral arteries. CT/STROKE CTA Head AND Neck W/Con IMPRESSION: 1. Mild atherosclerotic plaque formation of the bilateral cavernous ICAs and right M1 segment, however, no occlusions or visualized intraluminal thrombus or demonstrated aneurysm or hemodynamically significant stenosis of the intracranial arteries. 2. Mild atherosclerotic plaque of the left carotid bulb. Otherwise normal bilateral neck ICAs N.B. : The above Results were Read Back by Dallas Vo MD to Dr. Ej Dunn MD, and understanding confirmed on 11/25/2021 10:21:07 (ET). Electronically Signed: Dallas Vo MD at 10:23 EST ,
--- NOTE | 2021-11-25 09:27 | CT_ITS ---
We are attempting to reach an attending provider to discuss findings. An addendum with communication details will be sent when the communication is complete. STUDY: CT HEAD STROKE PROTOCOL W/O CONTRAST INJECTION REASON FOR EXAM: Female, 76 years old. ALT LOC RADIATION DOSAGE (If Supplied By Facility): CTDIvol = ( ) mGy, DLP = ( ) mGycm TECHNIQUE: Transaxial CT imaging of the brain was performed without administration of intravenous contrast material. Individualized dose optimization techniques were used for this CT. COMPARISON: No relevant priors. FINDINGS: Normal soft tissue structures. Normal calvarium. Normal size ventricles and extra-axial spaces for the patient''s age. Normal white matter tracts of the cerebral hemispheres. Normal basal ganglia and thalami. Normal brainstem. Normal cerebellum. There is no intracranial hemorrhage. There are no findings of an acute ischemic infarction. Asymmetric density of the right middle cerebral artery as compared to the left (image 37 series 601). Normal visualized paranasal sinuses. ASPECT score: 10 CT/STROKE Brain/Head without Cont IMPRESSION: 1. No acute intracranial hemorrhage or mass effect. 2. Asymmetric right middle cerebral artery suggesting possibility of dense MCA. CTA suggested. Electronically Signed: Chadwick Lopez MD (Brooks) at 9:41 EST ,
[2021-11-25] MEDS: Magnesium Sulfate 4gm/100mL 4 GM/100 ML IV.SOLN. IV (09:42)
[2021-11-25] MEDS: Sodium Chloride 3% 500 ML 60 ML IV (10:03)
[2021-11-25 10:26] LABS: Troponin-I HS 6 pg/mL (3.0-54.0)
[2021-11-25 10:58] LABS: Anion Gap 12 (5-15); BUN 28 mg/dL (7-18); Calcium,Total 7.6 mg/dL (8.5-10.1); Chloride 88 mmol/L (98-107); Creatinine, Serum 1.47 mg/dL (0.55-1.02); EST Glomerular Filtration Rate 37 mL/min (>60); Est Glom Filt Rate - Afr Amer 45 mL/min (>60); Estimated Creatinine Clearance 29.75 ml/min; Glucose 125 mg/dL (74-106); Potassium 3.2 mmol/L (3.5-5.1); Sodium Level 119 mmol/L (136-145)
--- NOTE | 2021-11-25 11:20 | CASEMGMT ---
DANIELA GAR Assessment: RN CM to room to meet with patient for initial transition planning/care coordination assessment. RN RIN introduced self and role at [facility]. Patient voices understanding and consents to assessment at this time. No visitors present at bedside. Patient is alert and oriented and answers all questions appropriately, sitting up on ER cart in no apparent distress. Care providers, pharmacy, and demographics verified/updated at this time. Admitting Dx: acute kidney injury, hyponatremia PCP: Rafita Reeves Specialists: Denies Preferred Pharmacy: [facility] Insurance: [employer] [facility] Prescription Benefit: yes Living Will/HPOA: Patient states she has a living will and HPOA is teto Barbosa. Patient made aware these forms are not on file at [facility] and may be brought in to be scanned into record. LNOK: Teto Barbosa and [id number] Fidelia Alvarez Living Arrangements: Patient lives alone in single story, ground level condo with no steps to enter the home. Patient states independent with ADLs prior to hospitalization. Patient typically ambulates independently without the use of an assistive device. Smoking/ETOH: Never smoker, admits to occasional ETOH use Transportation: Patient drives self and denies transportation concerns. DME/HHC/SNF: Patient denies having any DME in the home and denies need for DME at this time. Denies previous HHC or SNF stays. Patient has no concerns with going home at time of discharge and denies need for HHC at this time. CM to follow for any discharge planning/needs. Patient voices no concerns/needs at this time. Advised patient to ask for CM if any questions/concerns/needs arise. Voices understanding. Plan: home
[2021-11-25] MEDS: KCL 20MEQ in 0.9% NS 20 MEQ/1,000 ML IV.SOLN. 100 MEQ IV (13:05)
[2021-11-25] MEDS: Levothyroxine 100 MCG Tablet PO (13:05)
--- NOTE | 2021-11-25 14:00 | WOUNDNOTE ---
Was asked by nursing to see patient for stoma. in to talk with patient. patient states she has a history of ulcerative colitis. Pt has a continent ileostomy (Kock pouch). Pt states that family is bringing in the supplies she needs for this. this nurse did take a red rubber catheter in to patient and a Mepilex dressing, but patient states the catheter that she inserts into the stoma is larger. offered to bring a larger size catheter, but patient states she prefers to use the supplies that the family is bringing in. Pt aware to call for further needs. will monitor.
--- NOTE | 2021-11-25 14:07 | CHAPLAIN ---
Type of Pastoral Visit _x__ Initial Visit ___ Follow-up Visit ___ On-call Visit ___ General Patient Visit ___ Spiritual Assessment ___ Family Conference ___ Bereavement ___ Rapid Response ___ Code Blue ___ Other (describe below) Pastoral Care Referral From _x__ Patient ___ Family _x__ Nurse ___ Physician ___ Payroll Accounting Manager ___ Channeler Outsole ___ Other (describe below) Sacrament/Intervention _x__ Active listening ___ Anointing ___ Denominational ___ Bereavement ___ Communion ___ Cecilia exploration ___ ___ Life review _x__ Prayer ___ Reconciliation ___ Sacrament of Sick x Supportive presence ___ Wedding ___ Other (describe below) Pastoral Comments met with patient after referral from RN; pt is pleasant and welcomes the spiritual care; pt states her physical difficulty has been ongoing and goal is for relief and healing; pt is member of a local taoist and welcomes prayer;
[2021-11-25] MEDS: Potassium Chloride Oral Soln 20 MEQ/15 ML UDC 40 MEQ PO (14:39)
[2021-11-25] MEDS: Acetaminophen 325 MG Tablet 650 MG PO (14:42)
--- NOTE | 2021-11-25 15:11 | HP.PCM.HOS_ITS ---
Documented by User: Asif BURROUGHS 11/25/21 15:26 HPI - General General Date of Admission: 11/25/21 Date of Service: 11/25/21 Chief Complaint: Body cramps HPI Narrative DADA ROMAN is a 76-year-old female who presents to the ED at [facility] on 11/25/2021 for evaluation management of body cramps. Patient reports that for the past few days she has been experiencing worsening bodily cramps. Patient believes this is due to poor oral intake as she admits to not drinking her normal amount. Patient reports eating about 2 meals per day, which is her normal amount. While in the ED patient had an episode of aphasia, which was initially thought to be a stroke. Outside of aphasia patient demonstrated no other focal neurological deficits. Stroke alert was called while patient was in the ED and teleneurology consult was obtained, given that patient's symptoms were fluctuating it was determined at this time that patient was most likely not suffering a stroke. Vital signs are stable and patient is afebrile. CBC is unremarkable. BMP did show low sodium at 119, low potassium at 3.2, low chloride 88, creatinine 1.5. UA is unremarkable. [facility] Medical History (Updated 11/25/21 @ 15:23 by Asif BURROUGHS) Acute hyponatremia Acute kidney injury Anemia Anxiety Arthritis Back pain Cancer Depression Gastroenteritis History of pneumonia Hypothyroidism Incontinence Non-smoker Skin cancer Stomach ulcer Thyroid disease Home Medications sertraline 25 mg tablet 25 mg PO DAILY 07/23/18 [History Last Taken Unknown] calcium carbonate-vitamin D3 2 tab PO DAILY 01/24/21 [History Last Taken Unknown] cholecalciferol (vitamin D3) [Vitamin D3] 125 mcg PO DAILY 01/24/21 [History Last Taken Unknown] magnesium glycinate 100 mg PO DAILY 01/24/21 [History Last Taken Unknown] multivitamin 1 tab PO DAILY 01/24/21 [History Last Taken Unknown] levothyroxine 100 mcg PO MOTUWETHFR 04/08/21 [History Last Taken Unknown] levothyroxine 200 mcg PO SUSA 04/08/21 [History Last Taken Unknown] loperamide 2 mg PO Q2H PRN PRN 5 Days #40 cap 04/10/21 [Rx Last Taken Unknown] pantoprazole 40 mg PO DAILY 11/25/21 [History Last Taken Unknown] Allergy/AdvReac Type Severity Reaction Status Date / Time Penicillins Allergy Swelling Verified 11/25/21 07:28 Family History no significant family his no significant family history Surgical History (Updated 11/25/21 @ 15:21 by Asif BURROUGHS) H/O: hysterectomy History of appendectomy History of cholecystectomy History of colectomy Perforated ulcer Social History Smoking Status: Never smoker ROS Constitutional Constitutional: Denies anorexia, change in weight, chills, fatigue, fever(s), malaise, night sweats, weakness or other Eyes Eyes: Denies blurry vision, change in eye color, change in vision, discharge from eye(s), double vision, erythema, eye pain, loss of vision or other ENT HEENT: Denies abnormal hearing, dysphagia, ear pain, epistaxis, headache(s), hearing loss, nasal congestion, nasal discharge, post nasal drip, sinus pressure, sore throat or other Cardiovascular Cardiovascular: Denies chest pain, claudication, dyspnea on exertion, edema, lightheadedness, orthopnea, palpitations, paroxysmal nocturnal dyspnea, rapid heart rate, syncope or other Respiratory/Chest Respiratory/Chest: Denies cough, dyspnea, excessive phlegm production, hemoptysis, productive cough, shortness of breath at rest, shortness of breath with exertion, wheezing or other Gastrointestinal Gastrointestinal: Denies abdominal pain, coffee ground emesis, constipation, diarrhea, dyspepsia, hematemesis, hematochezia, loose stools, melena, nausea, vomiting or other Genitourinary Genitourinary: Denies burning urination, difficulty urinating, dysuria, hematuria, nocturia, urinary frequency, urinary hesitancy, urinary incontinence, urinary urgency or other Musculoskeletal Musculoskeletal: Denies arthralgias, back pain, joint pain, joint stiffness, joint swelling, myalgias, neck pain or other Psychiatric Psychiatric: Denies anxiety, depression, homicidal ideation, suicidal ideation or other Endocrine Endocrinology: Denies change in body appearance, cold intolerance, excessive sweating, heat intolerance, polydipsia, polyuria or other Hematologic/Lymphatic Hematologic/Lymphatic: Denies anemia, easy bleeding, easy bruising, lymphadenopathy or other Allergic/Immunologic Allergic/Immunologic: Denies rhinitis, hives, eczemia, asthma or other Vital Signs Vital Signs Vital Signs: 11/25/21 07:21 11/25/21 09:19 11/25/21 09:48 Temperature 96.9 F L Temperature Source Temporal Oral Pulse Rate 79 Respiratory Rate 16 Blood Pressure 155/92 H Blood Pressure Mean 113 Blood Pressure Source Blood Pressure Position Blood Pressure Location Pulse Ox 96 97 Oxygen Delivery Method Room Air Room Air 11/25/21 09:51 11/25/21 10:59 11/25/21 11:24 Temperature 97.6 F L 97.2 F L Temperature Source Temporal Temporal Pulse Rate 81 75 74 Respiratory Rate 15 17 16 Blood Pressure 134/70 H 110/60 114/66 Blood Pressure Mean 91 76 82 Blood Pressure Source Blood Pressure Position Blood Pressure Location Pulse Ox 95 93 94 Oxygen Delivery Method Room Air Room Air Room Air 11/25/21 12:23 11/25/21 13:24 Temperature 98.2 F Temperature Source Oral Pulse Rate 76 76 Respiratory Rate 18 Blood Pressure 141/62 H Blood Pressure Mean 88 Blood Pressure Source Monitor Blood Pressure Position Semi-Fowlers Blood Pressure Location Left Arm Pulse Ox 98 Oxygen Delivery Method Room Air Weight Weight: 124 lb 12.506 oz Body Mass Index (BMI) 22.1 Physical Exam Const alert and oriented x3 General Appearance: cooperative HEENT normocephalic, head/scalp atraumatic and hearing grossly normal bilaterally Eyes PERRL, EOMs intact bilaterally and conjunctivae normal Neck no lymphadenopathy, supple and no JVD Resp normal respiratory effort, no retractions and no use of accessory muscles Cardio regular rate, regular rhythm and no JVD GI normal to inspection, nondistended, normoactive bowel sounds Extremity normal to inspection Skin no rashes or lesions noted Neuro CN's II-XII intact bilaterally Psych affect normal Results Lab / Micro Data Result Diagrams: 11/25/21 07:30 11/25/21 09:56 Labs: Laboratory Results - last 24 hr 11/25/21 07:30: Total Bilirubin 1.10 H, Direct Bilirubin 0.19, AST 39 H, ALT 29, Alkaline Phosphatase 91, Total Protein 8.2, Albumin 4.2, Globulin 4.0 11/25/21 07:30: WBC 7.3, RBC 5.15, Hgb 14.5, Hct 42.5, MCV 82.5, MCH 28.1, MCHC 34.1, RDW Std Deviation 37.2, RDW Coeff of Humphrey 12.3, Plt Count 249, MPV 10.0, Immature Gran % (Auto) 0.300, Neut % (Auto) 73.7 H, Lymph % (Auto) 10.5 L, Coles % (Auto) 14.2 H, Eos % (Auto) 0.8, Baso % (Auto) 0.5, Absolute Neuts (auto) 5.4, Absolute Lymphs (auto) 0.77 L, Nucleated RBC % 0 11/25/21 07:30: Sodium 118 L*, Potassium 3.2 L, Chloride 85 L, Carbon Dioxide 20.0 L, Anion Gap 13, BUN 30 H, Creatinine 1.60 H, Estim Creat Clear Calc 27.34, Est GFR (MDRD) Af Amer 40 L, Est GFR (MDRD) Non-Af 33 L, BUN/Creatinine Ratio 18.8, Glucose 115 H, Calcium 9.6, Magnesium 1.2 L, Troponin I High Sens 5, Lipase 78 11/25/21 08:40: Urine Color Yellow, Urine Clarity Sl. Cloudy, Urine pH 6.0, Ur Specific Lando 1.015, Urine Protein 30 H, Urine Glucose (UA) Normal, Urine Ketones Negative, Urine Occult Blood 10 H, Urine Nitrite Negative, Urine Bilirubin Negative, Urine Urobilinogen Normal, Ur Leukocyte Esterase 25 H, Urine RBC 0-5 SEEN, Urine WBC 0-5 SEEN, Ur Squamous Epith Cells 0-5 SEEN, Urine Bacteria RARE, Hyaline Casts 0-5 SEEN, Urine Mucus RARE 11/25/21 09:56: Troponin I High Sens 6 11/25/21 09:56: Sodium 119 L*, Potassium 3.2 L, Chloride 88 L, Carbon Dioxide 19.0 L, Anion Gap 12, BUN 28 H, Creatinine 1.47 H, Estim Creat Clear Calc 29.75, Est GFR (MDRD) Af Amer 45 L, Est GFR (MDRD) Non-Af 37 L, BUN/Creatinine Ratio 19.0, Glucose 125 H, Calcium 7.6 L Radiology Impression Chest X-Ray 11/25/21 07:26 IMPRESSION: Hyperinflation. The lungs are clear. Electronically Signed: Dev Conklin MD at 8:05 EST , Brain CT 11/25/21 09:27 IMPRESSION: 1. No acute intracranial hemorrhage or mass effect. 2. Asymmetric right middle cerebral artery suggesting possibility of dense MCA. CTA suggested. Electronically Signed: Chadwick Lopez MD (Brooks) at 9:41 EST , ADDENDUM: 11/25/21 0950 IMPRESSION: 1. No acute intracranial hemorrhage or mass effect. 2. Asymmetric right middle cerebral artery suggesting possibility of dense MCA. CTA suggested. N.B. : The above Results were Read Back by Chadwick Lopez MD (Brooks) to Ej Dunn DO, and understanding confirmed on 11/25/2021 09:43:56 (ET). Electronically Signed: Chadwick Lopez MD (Brooks) at 9:41 EST , Head/Neck CTA 11/25/21 09:27 IMPRESSION: 1. Mild atherosclerotic plaque formation of the bilateral cavernous ICAs and right M1 segment, however, no occlusions or visualized intraluminal thrombus or demonstrated aneurysm or hemodynamically significant stenosis of the intracranial arteries. 2. Mild atherosclerotic plaque of the left carotid bulb. Otherwise normal bilateral neck ICAs N.B. : The above Results were Read Back by Dallas Vo MD to Dr. Ej Dunn MD, and understanding confirmed on 11/25/2021 10:21:07 (ET). Electronically Signed: Dallas Vo MD at 10:23 EST , ADDENDUM: 11/25/21 1030 IMPRESSION: 1. Mild atherosclerotic plaque formation of the bilateral cavernous ICAs and right M1 segment, however, no occlusions or visualized intraluminal thrombus or demonstrated aneurysm or hemodynamically significant stenosis of the intracranial arteries. 2. Mild atherosclerotic plaque of the left carotid bulb. Otherwise normal bilateral neck ICAs N.B. : The above Results were Read Back by Dallas Vo MD to Dr. Ej Dunn MD, and understanding confirmed on 11/25/2021 10:21:07 (ET). Electronically Signed: Dallas Vo MD at 10:23 EST Reading Location ID and State: [facility] / [place] , Service support , Assessment & Plan Assessment/Plan (1) Hyponatremia: (2) Hypokalemia: (3) Hypochloremia: PLAN: Patient is a 76-year-old female who presents to [facility] on 11/25/2021 with a chief complaint of bodily cramps and weakness. Patient will be admitted for evaluation and management of abnormal labs to include hyponatremia, hypokalemia and hypochloremia. 1) hyponatremia/hypokalemia/hypochloremia Most likely due to poor oral intake as patient denies any significant medical hi story or history of diuretic use. Will initiate IV fluid replacement as well as potassium, continue to monitor BMP. 2) JANY on CKD stage III Creatinine currently 1.47, baseline appears around 1. Will initiate IV fluids and continue to monitor. 3) GERD Continue PPI. 4) depression/anxiety Continue Zoloft. 5) hypothyroidism Continue Synthroid. DVT prophylaxis - Heparin Patient seen by Asif Sibley PA-C, under the supervision of Dr. Bragg. Time spent on patient care: 25 minutes. Documented by User: Dr. Christopher Bragg DO 11/25/21 19:34 HPI - General General Date of Admission: 11/25/21 [facility] Medical History (Updated 11/25/21 @ 15:23 by Asif BURROUGHS) Acute hyponatremia Acute kidney injury Anemia Anxiety Arthritis Back pain Cancer Depression Gastroenteritis History of pneumonia Hypothyroidism Incontinence Non-smoker Skin cancer Stomach ulcer Thyroid disease Home Medications sertraline 25 mg tablet 25 mg PO DAILY 07/23/18 [History Last Taken Unknown] calcium carbonate-vitamin D3 2 tab PO DAILY 01/24/21 [History Last Taken Unknown] cholecalciferol (vitamin D3) [Vitamin D3] 125 mcg PO DAILY 01/24/21 [History Last Taken Unknown] magnesium glycinate 100 mg PO DAILY 01/24/21 [History Last Taken Unknown] multivitamin 1 tab PO DAILY 01/24/21 [History Last Taken Unknown] levothyroxine 100 mcg PO MOTUWETHFR 04/08/21 [History Last Taken Unknown] levothyroxine 200 mcg PO SUSA 04/08/21 [History Last Taken Unknown] loperamide 2 mg PO Q2H PRN PRN 5 Days #40 cap 04/10/21 [Rx Last Taken Unknown] pantoprazole 40 mg PO DAILY 11/25/21 [History Last Taken Unknown] Allergy/AdvReac Type Severity Reaction Status Date / Time Penicillins Allergy Swelling Verified 11/25/21 07:28 Family History no significant family his Surgical History (Updated 11/25/21 @ 15:21 by Asif BURROUGHS) H/O: hysterectomy History of appendectomy History of cholecystectomy History of colectomy Perforated ulcer Social History Smoking Status: Never smoker Results Lab / Micro Data Result Diagrams: 11/25/21 07:30 11/25/21 09:56 Charges/Coding Addendum Addendum: Patient was seen and examined independently of Asif Sibley, she came to the ER at [facility] by squad today with complaints of lower extremity cramping. During the time she was being evaluated in the emergency room, she had a period of time where she would not answer questions and was nonverbal, stroke team was called and she underwent a head CT which did not reveal any evidence of stroke or acute bleed. She subsequently was able to talk again in the emergency room. The etiology of this episode was unknown, labs returned on the patient showing severe electrolyte imbalance-her sodium was low, her chloride was low, BUN was elevated, creatinine was elevated, potassium was low, and magnesium was low. The etiology for this imbalance was unknown, it was felt that the patient was hypovolemic-patient had complained of nausea and getting a clear story from the patient was difficult. On examination she appeared her stated age, she does not appear to be in any distress. Vital signs as documented. Skin warm and dry and without overt rashes. Neck without JVD, thyroid appears normal, trachea is midline, neck is supple. Lungs clear, normal air movement was noted. Heart exam notable for regular rhythm, normal sounds and absence of murmurs, rubs or gallops. Abdomen unremarkable and without evidence of organomegaly, masses, or abdominal aortic enlargement, bowel sounds are present in all 4 quadrants, no abdominal tenderness was noted. Extremities nonedematous, no cyanosis was noted, no c lubbing was noted. Neuro: Cranial nerves II through XII are grossly intact, no focal motor deficits were noted, sensation to light touch and pinprick is intact, motor exam 5/5 throughout. Psych: Patient is alert and oriented x3, she exhibits a flat affect. Impression: #1 hyponatremia-probably secondary to poor oral intake, patient will be admitted to PCU, she will have IV fluids administered, labs will be monitored. #2 acute kidney injury-patient will be given IV fluids, labs will be monitored #3 hypokalemia-patient will be given IV potassium supplementation, labs will be monitored #4 hypothyroidism-patient is on Synthroid I have reviewed Asif Sibley's history and physical including his medical assessment and plan of care and endorse it with the above additions. Total clinical time spent by myself addressing the patient's medical issues, reviewing the patient's medical data, and collaborating with the patient's care team: 45 minutes Visit Charges Inpatient E&M: 25552 Init Hosp L3
[2021-11-25] MEDS: Heparin Injection (Vial) 5,000 UNIT/ML VIAL 5000 UNIT SC (21:00)
[2021-11-26] VITALS (9 sets, daily range): BP systolic 78–131; BP diastolic 56–78; PULSE 88–117; RESP 16–18; TEMP 36.1–36.8; O2SAT 92–100
[2021-11-26] MEDS: proCHLORPERazine 10 MG/2 ML Vial IM ×2 (00:23→21:34)
[2021-11-26] MEDS: KCL 20MEQ in 0.9% NS 20 MEQ/1,000 ML IV.SOLN. 100 MEQ IV ×3 (00:35→21:02)
[2021-11-26] MEDS: Ondansetron 4 MG/2 ML Vial IV ×2 (03:04→18:16)
[2021-11-26 05:34] LABS: Anion Gap 11 (5-15); BUN 26 mg/dL (7-18); BUN/Creat Ratio 14.4 RATIO (10-20); Calcium,Total 9.2 mg/dL (8.5-10.1); Chloride 102 mmol/L (98-107); EST Glomerular Filtration Rate 29 mL/min (>60); Est Glom Filt Rate - Afr Amer 35 mL/min (>60); Estimated Creatinine Clearance 22.34 ml/min; Glucose 137 mg/dL (74-106); Potassium 3.9 mmol/L (3.5-5.1); Sodium Level 128 mmol/L (136-145)
[2021-11-26] MEDS: Levothyroxine 100 MCG Tablet PO (06:05)
--- NOTE | 2021-11-26 10:01 | WOUNDNOTE ---
In to check with patient to see that family brought her supplies in last pm. pt states that her daughter brought them in. water given per request. Pt still c/o leg cramps at times. denies further needs at this time.
[2021-11-26] MEDS: Pantoprazole Sodium 40 MG Tablet PO (10:47)
[2021-11-26] MEDS: Sertraline 50 MG Tablet 25 MG PO (10:47)
[2021-11-26] MEDS: Sodium Bicarbonate 650 MG Tablet 1300 MG PO ×3 (10:47→21:02)
[2021-11-26] MEDS: Heparin Injection (Vial) 5,000 UNIT/ML VIAL 5000 UNIT SC ×2 (10:50→21:01)
[2021-11-26] MEDS: Acetaminophen 325 MG Tablet 650 MG PO (10:57)
--- NOTE | 2021-11-26 12:30 | PN.HOSP_ITS ---
Documented by User: Asif BURROUGHS 11/26/21 12:45 Subjective Subjective Patient is a 76-year-old female lying in bed, alert and orient x3. Patient reports ongoing muscle cramps, but denies development of any other symptoms overnight. Objective Data Objective Data Vital Signs: Vital Signs Temp Pulse Resp BP Pulse Ox 97.0 F L 103 H 16 108/78 96 11/26/21 05:00 11/26/21 07:00 11/26/21 05:00 11/26/21 05:00 11/26/21 05:00 Oxygen Delivery Method Room Air Weight: 124 lb 12.506 oz Body Mass Index (BMI) 22.1 Intake & Output: Intake and Output for Last 24 Hours 11/24/21 11/25/21 11/26/21 23:59 23:59 23:59 Intake Total 2178 / 2378 1700 / 1700 Output Total 750 / 1150 1400 / 1400 Balance 1428 / 1228 300 / 300 Lab / Micro Data Result Diagrams: 11/25/21 07:30 11/26/21 04:41 Labs: Laboratory Results - last 24 hr 11/26/21 04:41: Sodium 128 L, Potassium 3.9, Chloride 102, Carbon Dioxide 15.0 L , Anion Gap 11, BUN 26 H, Creatinine 1.80 H, Estim Creat Clear Calc 22.34, Est GFR (MDRD) Af Amer 35 L, Est GFR (MDRD) Non-Af 29 L, BUN/Creatinine Ratio 14.4, Glucose 137 H, Calcium 9.2 Physical Exam Const alert, oriented x3 and no apparent distress HEENT head/scalp atraumatic and moist oral mucous membranes Head and Scalp: normocephalic Eyes PERRL, EOMs intact bilaterally and conjunctivae normal Neck no lymphadenopathy, supple and no JVD Resp normal respiratory effort, no retractions and no use of accessory muscles Cardio regular rate, regular rhythm and no JVD GI normal to inspection, nondistended, normoactive bowel sounds and soft to palpation Extremity normal to inspection Skin no rashes or lesions noted Neuro CN's II-XII intact bilaterally Psych affect normal Assessment & Plan Assessment/Plan (1) Hypochloremia: (2) Hypokalemia: (3) Hyponatremia: PLAN: Day 1 Discharge planning: Current plan is for patient to discharge home when medically ready. 1) hyponatremia/hypokalemia/hypochloremia Most likely due to poor oral intake as patient denies any significant medical history or history of diuretic use. Will initiate IV fluid replacement as well as potassium, continue to monitor BMP, will initiate sodium bicarb 1300 mg p.o. 3 times daily. 2) JANY on CKD stage III Creatinine currently 1.8, worse from admission, baseline appears around 1. Will initiate IV fluids and continue to monitor. 3) GERD Continue PPI. 4) depression/anxiety Continue Zoloft. 5) hypothyroidism Continue Synthroid. DVT prophylaxis - Heparin Patient seen by Asif Sibley PA-C, under the supervision of Dr. Bragg. Time spent on patient care: 7 minutes. Documented by User: Dr. Christopher Bragg, 11/26/21 17:34 Objective Data Lab / Micro Data Result Diagrams: 11/25/21 07:30 11/26/21 04:41 Charges/Coding Addendum Addendum: Patient was seen and examined today independently of Asif Sibley, her sodium has improved to 128, her potassium is now normal, creatinine however has elevated to 1.8. Patient's bicarb is low at 15-I think this is secondary to her ileostomy/ileal conduit. I have elected to administer oral bicarbonate for the patient. At this time we will continue IV fluids. Recheck labs. On examination she appeared in good health and spirits, she does not appear to be in any distress. Vital signs as documented. Skin warm and dry and without overt rashes. Neck without JVD, thyroid appears normal, trachea is midline, neck is supple. Lungs clear, normal air movement was noted. Heart exam notable for regular rhythm, normal sounds and absence of murmurs, rubs or gallops. Abdomen unremarkable and without evidence of organomegaly, masses, or abdominal aortic enlargement, bowel sounds are present in all 4 quadrants, no abdominal tenderness was noted. Extremities nonedematous, no cyanosis was noted, no clubbing was noted. Neuro: Cranial nerves II through XII are grossly intact, no focal motor deficits were noted, sensation to light touch and pinprick is intact, motor exam 5/5 throughout. Psych: Patient is alert and oriented x3, she does not appear anxious or depressed, she does not appear agitated. Impression:#1 hyponatremia-probably secondary to poor oral intake, continue present IV fluids, monitor labs #2 acute kidney injury-patient will be given IV fluids, labs will be monitored #3 hypokalemia-corrected at this time, monitor labs #4 hypothyroidism-patient is on Synthroid #5 nonanion gap acidosis-secondary to ileoconduit output, administer bicarbonate, recheck labs tomorrow I have reviewed Asif Toñito's progress note including his medical assessment and plan of care and endorse it with the above additions. Total clinical time spent by myself reviewing the patient's medical issues, reviewing all of her medical data, and collaborating with the patient's care team: 20-minute Visit Charges Inpatient E&M: 73852 Subs Hosp L2
--- NOTE | 2021-11-26 15:12 | CASEMGMT ---
This RN CM to room and pt declines need for any further therapy after discharge or resources at this time. CM to follow for therapy evals. Derrick RN CM
[2021-11-26] MEDS: 0.9% Normal Saline 1,000 ML 75 ML IV (15:29)
[2021-11-26] MEDS: Ensure Clear 120 ML Liquid PO ×2 (17:31→21:07)
[2021-11-26] MEDS: 0.9% Saline Lock 10 ML Syringe IV (18:16)
[2021-11-27] VITALS (7 sets, daily range): BP systolic 112–140; BP diastolic 60–65; PULSE 78–92; RESP 16–18; TEMP 36.2–36.7; O2SAT 97–98
[2021-11-27] MEDS: Ondansetron 4 MG/2 ML Vial IV ×2 (00:36→15:15)
[2021-11-27] MEDS: 0.9% Normal Saline 1,000 ML 75 ML IV (03:55)
[2021-11-27] MEDS: Sodium Bicarbonate 650 MG Tablet 1300 MG PO ×3 (06:20→22:07)
[2021-11-27 07:33] LABS: Anion Gap 9 (5-15); BUN 41 mg/dL (7-18); BUN/Creat Ratio 17.4 RATIO (10-20); Calcium,Total 8.3 mg/dL (8.5-10.1); Chloride 107 mmol/L (98-107); Creatinine, Serum 2.35 mg/dL (0.55-1.02); EST Glomerular Filtration Rate 21 mL/min (>60); Est Glom Filt Rate - Afr Amer 26 mL/min (>60); Estimated Creatinine Clearance 17.11 ml/min; Glucose 104 mg/dL (74-106); Potassium 4.2 mmol/L (3.5-5.1); Sodium Level 129 mmol/L (136-145)
[2021-11-27] MEDS: KCL 20MEQ in 0.9% NS 20 MEQ/1,000 ML IV.SOLN. 100 MEQ IV ×2 (07:36→17:59)
[2021-11-27] MEDS: Ensure Clear 120 ML Liquid PO ×2 (10:08→22:07)
[2021-11-27] MEDS: Pantoprazole Sodium 40 MG Tablet PO (10:09)
[2021-11-27] MEDS: Heparin Injection (Vial) 5,000 UNIT/ML VIAL 5000 UNIT SC ×2 (10:09→22:06)
[2021-11-27] MEDS: Sertraline 50 MG Tablet 25 MG PO (10:09)
--- NOTE | 2021-11-27 10:49 | PN.HOSP_ITS ---
Documented by User: Asif BURROUGHS 11/27/21 10:53 Subjective Subjective Patient is a 76-year-old female comfortably resting in bed, alert and orient x3. Patient reports that her muscle cramping has resolved and she feels much better. Denies development of any new symptoms overnight. Does not appear in a cute distress. Objective Data Objective Data Vital Signs: Vital Signs Temp Pulse Resp BP Pulse Ox 97.7 F L 82 18 116/65 97 11/27/21 09:00 11/27/21 09:00 11/27/21 09:00 11/27/21 09:00 11/27/21 09:00 Oxygen Delivery Method Room Air Weight: 124 lb 12.506 oz Body Mass Index (BMI) 22.1 Intake & Output: Intake and Output for Last 24 Hours 11/25/21 11/26/21 11/27/21 23:59 23:59 23:59 Intake Total 2178 / 2378 3060 / 3300 2172.5 / 2172.5 Output Total 750 / 1150 3200 / 3400 200 / 200 Balance 1428 / 1228 -140 / -100 1972.5 / 1972.5 Lab / Micro Data Result Diagrams: 11/25/21 07:30 11/27/21 07:00 Labs: Laboratory Results - last 24 hr 11/27/21 07:00: Sodium 129 L, Potassium 4.2, Chloride 107, Carbon Dioxide 13.0 L , Anion Gap 9, BUN 41 H, Creatinine 2.35 H, Estim Creat Clear Calc 17.11, Est GFR (MDRD) Af Amer 26 L, Est GFR (MDRD) Non-Af 21 L, BUN/Creatinine Ratio 17.4, Glucose 104, Calcium 8.3 L Physical Exam Const alert, oriented x3 and no apparent distress HEENT head/scalp atraumatic and moist oral mucous membranes Head and Scalp: normocephalic Eyes PERRL and conjunctivae normal Neck no lymphadenopathy, supple and no JVD Resp normal respiratory effort, no retractions and no use of accessory muscles Cardio regular rate, regular rhythm and no JVD GI normal to inspection, nondistended, normoactive bowel sounds Extremity normal to inspection Skin no rashes or lesions noted Neuro CN's II-XII intact bilaterally Psych affect normal Assessment & Plan Assessment/Plan (1) Hypochloremia: (2) Hypokalemia: (3) Hyponatremia: (4) Ulcerative colitis: PLAN: Day 2 Discharge planning: Current plan is for patient to discharge home when medically ready. 1) hyponatremia/hypokalemia/hypochloremia Sodium still low at 129, however improved from admission. Potassium and chloride within normal limits. Will continue IV fluid replacement, continue to monitor BMP, and continue sodium bicarb 1300 mg p.o. 3 times daily. 2) JANY on CKD stage III Creatinine continues to worsen at this time, currently 2.35. We will continue fluids as above and consider renal ultrasound with nephrology consult if creatinine continues to worsen. 3) GERD Continue PPI. 4) depression/anxiety Continue Zoloft. 5) hypothyroidism Continue Synthroid. DVT prophylaxis - Heparin Patient seen by Asif Sibley PA-C, under the supervision of Dr. Bragg. Time spent on patient care: 7 minutes. Documented by User: Dr. Christopher Bragg, 11/27/21 19:43 Objective Data Lab / Micro Data Result Diagrams: 11/25/21 07:30 11/27/21 07:00 Charges/Coding Addendum Addendum: Patient was seen and examined independently of Asif Sibley today, her creatinine is risen to 2.35, patient's bicarb is still low at 13, patient does not complain of any shortness of breath or abdominal discomfort. On examination she appeared in good health and spirits, she does not appear to be in any distress. Vital signs as documented. Skin warm and dry and without overt rashes. Neck without JVD, thyroid appears normal, trachea is midline, neck is supple. Lungs clear, normal air movement was noted. Heart exam notable for regular rhythm, normal sounds and absence of murmurs, rubs or gallops. Abdomen unremarkable and without evidence of organomegaly, masses, or abdominal aortic enlargement, bowel sounds are present in all 4 quadrants, no abdominal tenderness was noted. Extremities nonedematous, no cyanosis was noted, no clubbing was noted. Neuro: Cranial nerves II through XII are grossly intact, no focal motor deficits were noted, sensation to light touch and pinprick is intact, motor exam 5/5 throughout. Psych: Patient is alert and oriented x3, she does not appear anxious or depressed, she does not appear agitated. Impression: #1 acute kidney injury-etiology unclear, continue IV fluids and repeat labs tomorrow, may need nephrology consultation #2 hyponatremia-marginally better, continue fluids and repeat labs #3 non-anion gap acidosis-continue oral bicarb, recheck BMP tomorrow #4 hypothyroidism-continue Synthroid I have reviewed Asif Sibley's progress note including his medical assessment and plan of care and endorse it with the above additions. Total clinical time spent by myself addressing the patient's medical issues, reviewing all of her data, and collaborating with the patient's care team: 20 minutes Visit Charges Inpatient E&M: 87513 Subs Hosp L2
[2021-11-27] MEDS: 0.9% Saline Lock 10 ML Syringe IV ×2 (15:15→17:58)
[2021-11-27] MEDS: proCHLORPERazine 10 MG/2 ML Vial IM (17:58)
[2021-11-28] VITALS (8 sets, daily range): BP systolic 117–126; BP diastolic 62–71; PULSE 66–80; RESP 16–18; TEMP 36.5–36.6; O2SAT 97–99
[2021-11-28] MEDS: KCL 20MEQ in 0.9% NS 20 MEQ/1,000 ML IV.SOLN. 100 MEQ IV ×2 (04:23→21:58)
[2021-11-28 05:26] LABS: Anion Gap 7 (5-15); BUN 30 mg/dL (7-18); Chloride 112 mmol/L (98-107); EST Glomerular Filtration Rate 47 mL/min (>60); Est Glom Filt Rate - Afr Amer 56 mL/min (>60); Estimated Creatinine Clearance 33.51 ml/min; Glucose 100 mg/dL (74-106); Potassium 4.4 mmol/L (3.5-5.1); Sodium Level 132 mmol/L (136-145)
[2021-11-28] MEDS: Sodium Bicarbonate 650 MG Tablet 1300 MG PO ×3 (06:56→21:58)
[2021-11-28] MEDS: 0.9% Saline Lock 10 ML Syringe IV (09:14)
[2021-11-28] MEDS: Pantoprazole Sodium 40 MG Tablet PO (10:13)
[2021-11-28] MEDS: Ensure Clear 120 ML Liquid PO ×4 (10:13→21:56)
[2021-11-28] MEDS: Sertraline 50 MG Tablet 25 MG PO (10:13)
[2021-11-28] MEDS: Heparin Injection (Vial) 5,000 UNIT/ML VIAL 5000 UNIT SC ×2 (10:14→21:57)
--- NOTE | 2021-11-28 11:44 | PN.HOSP_ITS ---
Documented by User: Asif BURROUGHS 11/28/21 11:52 Subjective Subjective Patient is a 76-year-old female comfortably resting in bed, alert and orient x3. Patient reports that her cramps have resolved from admission. Patient denies development of any new symptoms overnight. Does not appear in acute distress. Objective Data Objective Data Vital Signs: Vital Signs Temp Pulse Resp BP Pulse Ox 97.7 F L 72 16 119/62 98 11/28/21 10:08 11/28/21 10:08 11/28/21 10:08 11/28/21 10:08 11/28/21 10:08 Oxygen Delivery Method Room Air Weight: 124 lb 12.506 oz Body Mass Index (BMI) 22.1 Intake & Output: Intake and Output for Last 24 Hours 11/26/21 11/27/21 11/28/21 23:59 23:59 23:59 Intake Total 3060 / 3300 3831.25 / 3831.25 1485 / 1485 Output Total 3200 / 3400 1900 / 2600 850 / 850 Balance -140 / -100 1931.25 / 1231.25 635 / 635 Lab / Micro Data Result Diagrams: 11/25/21 07:30 11/28/21 04:35 Labs: Laboratory Results - last 24 hr 11/28/21 04:35: Sodium 132 L, Potassium 4.4, Chloride 112 H, Carbon Dioxide 13.0 L, Anion Gap 7, BUN 30 H, Creatinine 1.20 H, Estim Creat Clear Calc 33.51, Est GFR (MDRD) Af Amer 56 L, Est GFR (MDRD) Non-Af 47 L, BUN/Creatinine Ratio 25.0 H , Glucose 100, Calcium 8.0 L Physical Exam Const alert, oriented x3 and no apparent distress HEENT head/scalp atraumatic and moist oral mucous membranes Head and Scalp: normocephalic Eyes PERRL and conjunctivae normal Neck no lymphadenopathy, supple and no JVD Resp normal respiratory effort, no retractions and no use of accessory muscles Cardio regular rate, regular rhythm and no JVD GI normal to inspection, nondistended, normoactive bowel sounds Extremity normal to inspection Skin no rashes or lesions noted Neuro CN's II-XII intact bilaterally Psych affect normal Assessment & Plan Assessment/Plan (1) Hypochloremia: (2) Hypokalemia: (3) Hyponatremia: PLAN: Day 3 Discharge planning: Current plan is for patient to discharge home when medically ready. 1) hyponatremia/hypokalemia/hypochloremia Sodium, potassium and chloride all improving are within normal limits. Continue IV fluids, continue to monitor BMP. 2) non-anion gap metabolic acidosis Bicarb is still low. Will initiate IV bicarb and continue to monitor BMP. Will request nephrology consult if not improved in a.m. 3) JANY on CKD stage III Creatinine continues to worsen at this time, currently 2.35. We will continue fluids as above and consider renal ultrasound with nephrology consult if creatinine continues to worsen. 4) GERD Continue PPI. 5) depression/anxiety Continue Zoloft. 6) hypothyroidism Continue Synthroid. DVT prophylaxis - Heparin Patient seen by Asif Sibley PA-C, under the supervision of Dr. Bragg. Time spent on patient care: 7 minutes. Documented by User: Dr. Christopher Bragg DO 11/28/21 15:46 Objective Data Lab / Micro Data Result Diagrams: 11/25/21 07:30 11/28/21 04:35 Charges/Coding Addendum Addendum: Patient was seen and examined independently of Asif Sibley, her bicarb is low again today and I have elected to place her on IV sodium bicarb and repeat a BMP in the afternoon. Patient's creatinine is improved as compared with yesterday. Patient has no complaints of any shortness of breath. On examination she appeared in good health and spirits, she does not appear to be in any distress. Vital signs as documented. Skin warm and dry and without overt rashes. Neck without JVD, thyroid appears normal, trachea is midline, neck is supple. Lungs clear, normal air movement was noted. Heart exam notable for regular rhythm, normal sounds and absence of murmurs, rubs or gallops. Abdomen unremarkable and without evidence of organomegaly, masses, or abdominal aortic enlargement, bowel sounds are present in all 4 quadrants, no abdominal tenderness was noted. Extremities nonedematous, no cyanosis was noted, no clubbing was noted. Neuro: Cranial nerves II through XII are grossly intact, no focal motor deficits were noted, sensation to light touch and pinprick is intact, motor exam 5/5 throughout. Psych: Patient is alert and oriented x3, she does not appear anxious or depressed, she does not appear agitated. #1 acute kidney injury-etiology unclear, continue IV fluids and repeat labs tomorrow, may need nephrology consultation #2 hyponatremia-marginally better, continue fluids and repeat labs #3 non-anion gap acidosis-continue oral bicarb, recheck BMP tomorrow, etiology is her ileostomy/ileal conduit. Patient will receive an infusion of 2 amps of sodium bicarbonate in a liter of fluid over 8 hours today. #4 hypothyroidism-continue Synthroid I have reviewed Asif Sibley's progress note including his medical assessment and plan of care and with the above additions endorse it. Total clinical time spent by myself addressing the patient's medical issues, reviewing all of her medical data, and collaborating with the patient's care team: 20 minutes Visit Charges Inpatient E&M: [id number] Subs Hosp L2
[2021-11-28 16:59] LABS: Anion Gap 6 (5-15); BUN 18 mg/dL (7-18); BUN/Creat Ratio 17.5 RATIO (10-20); Calcium,Total 8.5 mg/dL (8.5-10.1); Chloride 109 mmol/L (98-107); Creatinine, Serum 1.03 mg/dL (0.55-1.02); EST Glomerular Filtration Rate 56 mL/min (>60); Est Glom Filt Rate - Afr Amer 67 mL/min (>60); Estimated Creatinine Clearance 39.04 ml/min; Glucose 127 mg/dL (74-106); Potassium 3.2 mmol/L (3.5-5.1); Sodium Level 132 mmol/L (136-145)
[2021-11-29 03:00] VITALS: PULSE 69
[2021-11-29 04:00] VITALS: BP 145/67; PULSE 80; RESP 18; TEMP 36.4; O2SAT 97
[2021-11-29] MEDS: Sodium Bicarbonate 650 MG Tablet 1300 MG PO ×2 (06:31→14:32)
[2021-11-29] MEDS: Levothyroxine 100 MCG Tablet PO (06:31)
[2021-11-29 07:00] VITALS: PULSE 76
[2021-11-29 07:27] LABS: Anion Gap 5 (5-15); BUN 14 mg/dL (7-18); Calcium,Total 7.9 mg/dL (8.5-10.1); Chloride 113 mmol/L (98-107); Creatinine, Serum 0.78 mg/dL (0.55-1.02); EST Glomerular Filtration Rate 77 mL/min (>60); Est Glom Filt Rate - Afr Amer 93 mL/min (>60); Estimated Creatinine Clearance 40.21 ml/min; Glucose 102 mg/dL (74-106); Sodium Level 135 mmol/L (136-145)
[2021-11-29] MEDS: KCL 20MEQ in 0.9% NS 20 MEQ/1,000 ML IV.SOLN. 100 MEQ IV (09:17)
[2021-11-29 09:50] VITALS: BP 117/67; PULSE 71; RESP 16; TEMP 37.2; O2SAT 96
[2021-11-29] MEDS: Pantoprazole Sodium 40 MG Tablet PO (09:55)
[2021-11-29] MEDS: Sertraline 50 MG Tablet 25 MG PO (09:55)
[2021-11-29] MEDS: Acetaminophen 325 MG Tablet 650 MG PO (09:59)
[2021-11-29] MEDS: Heparin Injection (Vial) 5,000 UNIT/ML VIAL 5000 UNIT SC (10:00)
[2021-11-29] MEDS: Ensure Clear 120 ML Liquid PO (10:03)
--- NOTE | 2021-11-29 11:34 | DCINST_ITS ---
Discharge Instructions Diet Discharge Diet: No restrictions Activity Discharge Activity: Return to Normal Activity Weight Bearing Status: Weight bearing as tolerated Dressing / Incision Call your doctor if you observe: Fever of 101 or Higher, Numbness or Tingling, Shortness of breath, Dizziness, Chest pain, Increased palpitations (irregular heartbeat) and Calf discomfort Follow Up Care Please Follow Up With: Primary care provider When: Within the next two weeks. Test Results: Test results from this visit will be discussed in further detail at your follow-up appointment, if applicable. Discharge Plan Admission Admit Date/Time: 11/25/21 11:10 Primary Reason for Your Visit: Muscle cramps with abnormal labs. Attending Provider: Christopher Bragg Primary Care Provider: Rafita Reeves Instructions Additional Instructions / Restrictions: * supervisor beet end a prescription for Sodium bicarbonate, over the counter. * Take sodium bicarbonate 650mg, orally, three times daily. * Take sodium bicarbonate until told to stop by your primary care provider. Discharge Orders/Prescriptions Prescriptions: Continued sertraline [Zoloft] 25 mg tablet 25 mg PO DAILY RF: 0 multivitamin Tablet 1 tab PO DAILY RF: 0 calcium carbonate-vitamin D3 600 mg(1,500mg) -200 unit Tablet 2 tab PO DAILY RF: 0 cholecalciferol (vitamin D3) [Vitamin D3] 125 mcg (5,000 unit) Tablet 125 mcg PO DAILY RF: 0 levothyroxine 100 mcg tablet 100 mcg PO DAILY RF: 0 pantoprazole 20 mg tablet,delayed release (DR/EC) 40 mg PO DAILY RF: 0 ondansetron 4 mg Tablet,Disintegrating 4 mg PO Q6H PRN (Reason: Nausea) RF: 0 Referrals / Follow Up: Rafita Reeves DO [Primary Care Provider] - Within 2 Weeks Disposition Disposition (needs filled in before D/C Order can be placed): Home, Self Care
[2021-11-29 14:25] VITALS: PULSE 69
--- NOTE | 2021-11-29 15:04 | PCM.DC.SUM ---
Documented by User: Asif BURROUGHS 11/29/21 15:11 Providers Date of Admission: 11/25/21 Date of Discharge: 11/29/21 Primary Care Physician: Dr. 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 Comment: Reason For Visit: ACUTE KIDNEY INJURY, HYPONATREMIA Diagnosis Discharge Diagnosis (1) Hypochloremia: Status: Acute Code(s): E87.8 - Other disorders of electrolyte and fluid balance, not elsewhere classified (2) Hypokalemia: Status: Acute Code(s): E87.6 - Hypokalemia (3) Hyponatremia: Status: Acute Code(s): E87.1 - Hypo-osmolality and hyponatremia Medications at Discharge Home Medications sertraline 25 mg tablet 25 mg PO DAILY 07/23/18 calcium carbonate-vitamin D3 2 tab PO DAILY 01/24/21 cholecalciferol (vitamin D3) [Vitamin D3] 125 mcg PO DAILY 01/24/21 multivitamin 1 tab PO DAILY 01/24/21 levothyroxine 100 mcg PO DAILY 04/08/21 ondansetron 4 mg PO Q6H PRN 11/25/21 pantoprazole 40 mg PO DAILY 11/25/21 Hospital Course Summary of Care Provided Minutes Spent on Discharge: 20 Hospital Course: Patient is in 76-year-old female who was admitted to [facility] on 11/25/2021 for evaluation and management of muscle cramps with abnormal labs. Course and management as below. 1) hyponatremia/hypokalemia/hypochloremia Sodium, potassium and chloride all within normal limits or have improved with replacement. Believe due to poor oral intake prior to admission. 2) non-anion gap metabolic acidosis Bicarb 17, improved with IV sodium bicarb. Will initiate sodium bicarb 650 mg p.o. 3 times daily and have patient follow-up with her primary care provider. 3) JANY on CKD stage III Resolved currently within normal limits. Likely due to poor oral intake prior to admission. 4) GERD Continue PPI. 5) depression/anxiety Continue Zoloft. 6) hypothyroidism Continue Synthroid. Patient seen by Asif Sibley PA-C, under the supervision of Dr. Bragg. Time spent on patient care: 20 minutes. Physical Exam Narrative Patient is a 76-year-old female comfortably resting in bed, alert and orient x3. Patient denies development of any new symptoms overnight. Does not appear in acute distress. Const alert, oriented x3 and no apparent distress HEENT normocephalic, head/scalp atraumatic and hearing grossly normal bilaterally Eyes PERRL and conjunctivae normal Neck no lymphadenopathy, supple and no JVD Resp normal respiratory effort, no retractions and no use of accessory muscles Cardio regular rate, regular rhythm and no JVD GI normal to inspection, nondistended, normoactive bowel sounds Extremity normal to inspection Skin no rashes or lesions noted Neuro CN's II-XII intact bilaterally Psych affect normal Weight / BMI Weight Weight: 124 lb 12.506 oz Body Mass Index (BMI) 22.1 ABG / Lab / Microbiology Data Result Diagrams: 11/25/21 07:30 11/29/21 06:55 Laboratory: Laboratory Results - last 24 hr 11/28/21 16:30: Sodium 132 L, Potassium 3.2 L, Chloride 109 H, Carbon Dioxide 17.0 L, Anion Gap 6, BUN 18, Creatinine 1.03 H, Estim Creat Clear Calc 39.04, Est GFR (MDRD) Af Amer 67, Est GFR (MDRD) Non-Af 56 L, BUN/Creatinine Ratio 17.5, Glucose 127 H, Calcium 8.5 11/29/21 06:55: Sodium 135 L, Potassium 4.0, Chloride 113 H, Carbon Dioxide 17.0 L, Anion Gap 5, BUN 14, Creatinine 0.78, Estim Creat Clear Calc 40.21, Est GFR (MDRD) Af Amer 93, Est GFR (MDRD) Non-Af 77, BUN/Creatinine Ratio 18.0, Glucose 102, Calcium 7.9 L D/C Instructions Discharge Diet: No restrictions Weight Bearing Status: Weight bearing as tolerated Call your doctor if you observe: Fever of 101 or Higher, Numbness or Tingling, Shortness of breath, Dizziness, Chest pain, Increased palpitations (irregular heartbeat) and Calf discomfort Please Follow Up With: Primary care provider When: Within the next two weeks. Meaningful Use Info Meaningful Use Diagnoses (Choose all that apply): None applicable Discharge Plan Admission Admit Date/Time: 11/25/21 11:10 Primary Reason for Your Visit: Muscle cramps with abnormal labs. 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 * Take sodium bicarbonate 650mg, orally, three times daily. * Take sodium bicarbonate until told to stop by your primary care provider. Discharge Orders/Prescriptions Prescriptions: Continued sertraline [Zoloft] 25 mg tablet 25 mg PO DAILY RF: 0 multivitamin Tablet 1 tab PO DAILY RF: 0 calcium carbonate-vitamin D3 600 mg(1,500mg) -200 unit Tablet 2 tab PO DAILY RF: 0 cholecalciferol (vitamin D3) [Vitamin D3] 125 mcg (5,000 unit) Tablet 125 mcg PO DAILY RF: 0 levothyroxine 100 mcg tablet 100 mcg PO DAILY RF: 0 pantoprazole 20 mg tablet,delayed release (DR/EC) 40 mg PO DAILY RF: 0 ondansetron 4 mg Tablet,Disintegrating 4 mg PO Q6H PRN (Reason: Nausea) RF: 0 Referrals / Follow Up: Rafita Reeves DO [Primary Care Provider] - Within 2 Weeks Disposition Disposition (needs filled in before D/C Order can be placed): Home, Self Care Documented by User: Dr. Christopher Bragg DO 11/29/21 15:43 Providers Date of Admission: 11/25/21 Reason For Visit: ACUTE KIDNEY INJURY, HYPONATREMIA Medications at Discharge Home Medications sertraline 25 mg tablet 25 mg PO DAILY 07/23/18 calcium carbonate-vitamin D3 2 tab PO DAILY 01/24/21 cholecalciferol (vitamin D3) [Vitamin D3] 125 mcg PO DAILY 01/24/21 multivitamin 1 tab PO DAILY 01/24/21 levothyroxine 100 mcg PO DAILY 04/08/21 ondansetron 4 mg PO Q6H PRN 11/25/21 pantoprazole 40 mg PO DAILY 11/25/21 ABG / Lab / Microbiology Data Result Diagrams: 11/25/21 07:30 11/29/21 06:55 Discharge Plan Admission Admit Date/Time: 11/25/21 11:10 Primary Reason for Your Visit: Muscle cramps with abnormal labs. 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 * Take sodium bicarbonate 650mg, orally, three times daily. * Take sodium bicarbonate until told to stop by your primary care provider. Discharge Orders/Prescriptions Prescriptions: Continued sertraline [Zoloft] 25 mg tablet 25 mg PO DAILY RF: 0 multivitamin Tablet 1 tab PO DAILY RF: 0 calcium carbonate-vitamin D3 600 mg(1,500mg) -200 unit Tablet 2 tab PO DAILY RF: 0 cholecalciferol (vitamin D3) [Vitamin D3] 125 mcg (5,000 unit) Tablet 125 mcg PO DAILY RF: 0 levothyroxine 100 mcg tablet 100 mcg PO DAILY RF: 0 pantoprazole 20 mg tablet,delayed release (DR/EC) 40 mg PO DAILY RF: 0 ondansetron 4 mg Tablet,Disintegrating 4 mg PO Q6H PRN (Reason: Nausea) RF: 0 Referrals / Follow Up: Rafita Reeves DO [Primary Care Provider] - Within 2 Weeks Disposition Disposition (needs filled in before D/C Order can be placed): Home, Self Care Charges/Coding Addendum Addendum: Patient was seen and examined today independently of Asif Sibley, she voices no complaints of any shortness of breath, chills, fever, or abdominal discomfort. On examination she appeared in good health and spirits, she does not appear to be in any distress. Vital signs as documented. Skin warm and dry and without overt rashes. Neck without JVD, thyroid appears normal, trachea is midline, neck is supple. Lungs clear, normal air movement was noted. Heart exam notable for regular rhythm, normal sounds and absence of murmurs, rubs or gallops. Abdomen unremarkable and without evidence of organomegaly, masses, or abdominal aortic enlargement, bowel sounds are present in all 4 quadrants, no abdominal tenderness was noted, there was noted to be an ileal conduit present over the right mid abdomen area. Extremities nonedematous, no cyanosis was noted, no clubbing was noted. Neuro: Cranial nerves II through XII are grossly intact, no focal motor deficits were noted, sensation to light touch and pinprick is intact, motor exam 5/5 throughout. Psych: Patient is alert and oriented x3, she does not appear anxious or depressed, she does not appear agitated. Impression #1 acute kidney injury #2 hyponatremia #3 non-anion gap acidosis #4 hypothyroidism I have reviewed Asif Sibley's discharge summary including his medical assessment and plan of care and endorse it with the above additions. Total clinical time spent by myself addressing the patient's needs, reviewing the patient's data, and collaborating with the patient's care team: 25 minutes Visit Charges Inpatient E&M: 12443 Disch Hosp
--- NOTE | 2021-11-29 15:11 | CHAPLAIN ---
Type of Pastoral Visit ___ Initial Visit _x__ Follow-up Visit ___ On-call Visit ___ General Patient Visit ___ Spiritual Assessment ___ Family Conference ___ Bereavement ___ Rapid Response ___ Code Blue ___ Other (describe below) Pastoral Care Referral From _x__ Patient ___ Family ___ Nurse ___ Physician ___ Multi Skilled Operator ___ Social Work Supervisor ___ Other (describe below) Sacrament/Intervention _x__ Active listening ___ Anointing ___ Presybeterian ___ Bereavement ___ Communion ___ Cecilia exploration ___ _x__ Life review _x__ Prayer ___ Reconciliation ___ Sacrament of Sick _x__ Supportive presence ___ Wedding ___ Other (describe below) Pastoral Comments follow up; pt expects to be discharged home; pt is pleasant and talkative; pt is optimistic; pt welcomes prayer and presence
[2021-11-29 15:50] VITALS: BP 122/63; PULSE 72; RESP 16; TEMP 36.7; O2SAT 98
== END 2021-11-29 16:12 | disposition home or self-care (01) | DRG 641 ==
LOC: ED 07:50 → PCU 11:25
PROVIDERS: Physician Assistant; Admitting Provider Internal Medicine; Emergency Provider Student in an Organized Health Care Education/Training Program; PCP Student in an Organized Health Care Education/Training Program; Visit Provider Internal Medicine
DX: E87.1 Hypo-osmolality and hyponatremia (principal); N17.9 Acute kidney failure, unspecified; R47.01 Aphasia; E87.2 Acidosis; E87.8 Other disorders of electrolyte and fluid balance, not elsewhere classified; E87.6 Hypokalemia; E03.9 Hypothyroidism, unspecified; N18.2 Chronic kidney disease, stage 2 (mild); F41.9 Anxiety disorder, unspecified; M19.90 Unspecified osteoarthritis, unspecified site; K21.9 Gastro-esophageal reflux disease without esophagitis; Z85.828 Personal history of other malignant neoplasm of skin; Z87.19 Personal history of other diseases of the digestive system; F32.A Depression, unspecified; Z79.899 Other long term (current) drug therapy; I49.1 Atrial premature depolarization
CPT/HCPCS: 36415; 70450; 70496; 70498; 71045; 80048; 80076; 81001; 83690; 83735; 84484; 85025; 93005; 97110; 97161; 97165; 97530; 97535; 97802; 99285; J7030; Q9967; A4216; J2405

== ENCOUNTER → 2022-12-30 | Outpatient (CLI) | payer MEDICARE, SELFPAY ==
[2022-12-30 14:32] LABS: Erythrocyte Sedimentation Rate 7 mm/hr (0-30)
[2022-12-30 14:54] LABS: AST(SGOT) 28 U/L (15-37); Alanine Aminotransfer ALT/SGPT 25 U/L (13-56); Alkaline Phosphatase 89 U/L (45-117); Anion Gap 9 (5-15); BUN 17 mg/dL (7-18); BUN/Creat Ratio 16.5 RATIO (10-20); CRP < 2.90 mg/L (0.0-3.0); Calcium,Total 9.6 mg/dL (8.5-10.1); Chloride 104 mmol/L (98-107); Creatinine, Serum 1.03 mg/dL (0.55-1.02); EST Glomerular Filtration Rate 55 mL/min (>60); Est Glom Filt Rate - Afr Amer 67 mL/min (>60); Globulin 4.2 g/dL (2.2-4.2); Glucose 95 mg/dL (74-106); Potassium 3.5 mmol/L (3.5-5.1); Protein, Total 8.2 g/dL (6.4-8.2); Sodium Level 139 mmol/L (136-145)
[2023-01-02 15:08] LABS: Endomysial Antibody IgA Negative (Negative)
[2023-01-02 15:40] LABS: Immunoglobulin A 288 mg/dL (64-422); t-Transglutaminase IgA <2 U/mL (0-3)
[2023-01-04 10:09] LABS: Anti-Centromere B Ab <0.2 AI (0.0-0.9); Anti-Chromatin <0.2 AI (0.0-0.9); Anti-Jo <0.2 AI (0.0-0.9); Anti-Scleroderma-70 AB <0.2 AI (0.0-0.9); Beef <0.10 kU/L (Class 0); Clam <0.10 kU/L (Class 0); Codfish <0.10 kU/L (Class 0); Corn <0.10 kU/L (Class 0); Egg, White <0.10 kU/L (Class 0); Egg, Whole <0.10 kU/L (Class 0); Milk (Cow) <0.10 kU/L (Class 0); Peanut <0.10 kU/L (Class 0); Pork <0.10 kU/L (Class 0); RNP Ab <0.2 AI (0.0-0.9); SCALLOP <0.10 kU/L (Class 0); SESAME SEED <0.10 kU/L (Class 0); SJOGREN'S Anti-SS-A test < 0.2 AI (0.0-0.9); SJOGREN'S Anti-SS-B test < 0.2 AI (0.0-0.9); Shrimp <0.10 kU/L (Class 0); Smith Ab <0.2 AI (0.0-0.9); Soybean <0.10 kU/L (Class 0); Walnut, (Food) <0.10 kU/L (Class 0); Wheat <0.10 kU/L (Class 0)
[2023-01-04 11:09] LABS: Albumin 3.8 g/dL (2.9-4.4); Alpha-1-Globulins 0.3 g/dL (0.0-0.4); Cytoplasmic Ab (C-ANCA) <1:20 titer (Neg:<1:20); Gamma Globulin 1.2 g/dL (0.4-1.8); Immunoglobulin A 286 mg/dL (64-422); Immunoglobulin G 957 mg/dL (586-1602); Immunoglobulin M 88 mg/dL (26-217); PROEL- TOTAL PROTEIN 7.6 g/dL (6.0-8.5)
[2023-01-04 11:10] LABS: Anti-dsDNA Ab <1 IU/mL (0-9); Chocolate <0.10 kU/L (Class 0)
[2023-01-04 11:20] LABS: Immunoglobulin E 8 IU/mL (6-495); Perinuclear Ab (P-ANCA) <1:20 titer (Neg:<1:20)
== END | disposition home or self-care (01) ==
PROVIDERS: PCP Student in an Organized Health Care Education/Training Program; Referring Provider Internal Medicine Gastroenterology; Visit Provider Internal Medicine Gastroenterology
DX: K51.90 Ulcerative colitis, unspecified, without complications (principal)
CPT/HCPCS: 36415; 80053; 82784; 82785; 83516; 84165; 85652; 86003; 86005; 86140; 86225; 86235; 86255; 86256; 86334

== ENCOUNTER → 2022-12-31 | Outpatient (CLI) | payer MEDICARE, SELFPAY ==
[2023-01-03 14:42] LABS: H. PYLORI STOOL AG Negative (Negative)
== END | disposition home or self-care (01) ==
PROVIDERS: PCP Student in an Organized Health Care Education/Training Program; Referring Provider Internal Medicine Gastroenterology; Visit Provider Internal Medicine Gastroenterology
DX: K51.90 Ulcerative colitis, unspecified, without complications (principal)
CPT/HCPCS: 83993; 87338

== ENCOUNTER 2023-11-06 14:00 | Outpatient (RCR) | payer MEDICARE, SELFPAY ==
--- NOTE | 2023-10-23 11:30 | HP.PTEVAL_ITS ---
Patient's Visit Information Visit Information Visit Information: DADA ROMAN is a 78 year old F referred to Physical Therapy by Dr. Rafita Reeves DO with a diagnosis of Back pain and B hip pain. Date of Evaluation: 10/23/23 Physical Therapist: CAMI Haas Visit Plan Frequency: 2x /Week Duration: 2 Months Plan: 2X/ week for 8 weeks for stretching of the R piriformis and IT band, stren gthening of core in neutral, LE strength, stair negotiation, balance incorportated with HEP HEP: PT, PT with hip march, and seated piriformis stretch on the R Subjective Subjective: Pt has OA. thought that she should come and do a little bit of therapy. She on B sides and more prone on the R side and butt cheek and goes down the the outer side of her calf on the R side. She reports that she has neuropathy that will wake her up at night and stiff in her feet and no pain meds will get rid of it and is both feet at different times. The back pain has been there off and on for several years. The last 3 weeks the pain down the R side is bothering her. It does not stop her from her from walking but does hurt with walking (maybe a 4/10 and then and hurts more at night when she is resting). She is not a good sleeper. She walks for exercise (couple of miles)... has not walked much since the holidays. Stairs bother her sometimes..she has to hold on and has to go slow. Going up is worse and notices weakness in her legs and does go up recip. Pain Back pain: Pain Intensity (Out of 10): 3 R hip pain: Pain Intensity (Out of 10): 4 L hip pain: Pain Intensity (Out of 10): 0 Objective Objective: Gait: walks with smaller step length, decrease r arm swing and decrease trunk rotation Pt is able to walk and horizontal and vertical head turn without veering Trunk AROM: flexion 100%, ext 10%, SB B 75%, Rot B 75% Heel and toe raise... able with full ROM and strength and had a little LOB and needed UE support LE MMT: R hip flex 13.4 and L 14.4 R knee ext 20.7 and L 21.5 R knee flex 10.6 and L 9.6 R hip abd 16 and L 18 R hip ext 21 and L 23 Stairs: up and down stairs recip with using 1 hand rail but some weakness presen t with ascending the step Sit to stand: able to get up out of the chair on first attempt without using her UE's Balance/Special Test Scores Oswestry Low Back Score: 10 Goals Goal 1:: I HEP Goal Time Frame: 6-8 Weeks Goal 2:: Decrease R hip pain to 0/10 with ADL's and with sleeping Goal Time Frame: 6-8 Weeks Goal 3:: Be able to go up and down the steps recip with 1 handrail without having to pull self up Goal Time Frame: 6-8 Weeks Goal 4:: Increase LE strength (at time of the eval: LE MMT: R hip flex 13.4 and L 14.4 R knee ext 20.7 and L 21.5 R knee flex 10.6 and L 9.6 R hip abd 16 and L 18 R hip ext 21 and L 23). Goal Time Frame: 6-8 Weeks Goal 5:: Increase flexibility of the R piriformis Goal Time Frame: 6-8 Weeks Rehabilitation Potential Rehabilitation Potential: Good Anticipated Interventions Patient/Client Instruction: Educate patient on: Condition and Plan of Care For the Purpose of:: To decrease pain, To increase ROM, To improve nutrient delivery to tissue, To improve muscle performance and motor function, To improve ability to perform ADL's, To increase tolerance to activity/condition/position, To improve performance and independence with ADL's, To improve gait and locomotor functions, To improve health of tissue, To decrease soft tissue restriction, To increase flexibility/ROM and To improve balance Therapeutic Exercise to Include: Strength training, Balance training, Postural training, Flexibilty training, Gait and locomotor training, Neuromotor development, Active ROM, Dynamic Lumbar Stabilization and Scapular Strength/Stabilization For the Purpose of:: To decrease pain, To increase ROM, To improve nutrient delivery to tissue, To improve muscle performance and motor function, To improve ability to perform ADL's, To increase tolerance to activity/condition/position, To improve performance and independence with ADL's, To improve ability of physical actions for home/community/work/leisure, To improve gait and locomotor functions, To improve health of tissue, To decrease soft tissue restriction, To increase flexibility/ROM and To improve balance Manual Therapy Techniques to Include: Passive ROM and Soft tissue mobilization For the Purpose of:: To decrease pain, To increase ROM, To improve nutrient delivery to tissue, To improve health of tissue, To decrease soft tissue restriction and To increase flexibility/ROM Text: Thank you for the opportunity to evaluate your patient. For Medicare and Medicare HMO plans, please review the plan of care and approve it. It will need to be FAXED BACK to us at [phone] for Medicare purposes. For Medicare only, by signing this I certify the plan of care. Please let me know if there are questions or concerns regarding this plan of care. Physician Signature: Date:
--- NOTE | 2023-11-06 14:32 | HP.PTDCSUM ---
Discharge Summary D/C summary: It has been my pleasure to treat DADA ROMAN referred by Dr. Rafita Reeves DO, with the diagnosis of Back pain and B hip pain for a total of 3 visit(s). Discharge Date: 11/06/23 Please see the following information for a summary of their discharge status. Subjective Subjective: She had one day that she was sore in her back after exercises but none since. Pain Back pain: Pain Intensity (Out of 10): 6 R hip pain: Pain Intensity (Out of 10): 6 L hip pain: Pain Intensity (Out of 10): 0 Overall Improvement % Improvement: 40 Objective Objective/Function: MMT: R hip flex 13.4 and L 14.4 R knee ext 21.7 and L 25.8 R knee flex 17.1 and L 15.9 R hip abd 18.4 and L 18 R hip ext 21 and L 23). Stairs up and down recip with light touch on the rail for balance good piriformis length B Goals Goal 1:: I HEP Goal Progress: Goal Met Goal 2:: Decrease R hip pain to 0/10 with ADL's and with sleeping Goal Progress: Progressing Goal 3:: Be able to go up and down the steps recip with 1 handrail without having to pull self up Goal Progress: Goal Met Goal 4:: Increase LE strength (at time of the eval: LE MMT: R hip flex 13.4 and L 14.4 R knee ext 20.7 and L 21.5 R knee flex 10.6 and L 9.6 R hip abd 16 and L 18 R hip ext 21 and L 23). Goal 5:: Increase flexibility of the R piriformis Goal Progress: Goal Met Plan Plan: DC PT to HEP D/C Information Discharge Comments: DC PT to HEP d/c sentence: If there are questions or concerns regarding this patient's physical therapy, please feel free to call me at [phone]. Thank you for the referral of this patient. Sincerely, Jo Garcia, MPT Balance/Gait/Functional tests Balance/Special Test Scores Oswestry Low Back Score: 5 Improvement % Improvement: 40
== END 2023-11-06 19:00 | disposition home or self-care (01) ==
LOC: PT 14:00
PROVIDERS: PCP Student in an Organized Health Care Education/Training Program; Referring Provider Student in an Organized Health Care Education/Training Program; Visit Provider Student in an Organized Health Care Education/Training Program
DX: M54.41 Lumbago with sciatica, right side (principal); M54.42 Lumbago with sciatica, left side; M25.551 Pain in right hip; M25.552 Pain in left hip; G89.29 Other chronic pain
CPT/HCPCS: 97110; 97162